=== PATIENT | male | born 1940 | race Caucasian/White ===

== ENCOUNTER 2018-04-19 07:02 | Emergency (ER) | payer OTHER ==
[2018-04-19] MEDS ORDERED: NA CHLORIDE 0.9% 1,000 ML ONE (07:15)
[2018-04-19] MEDS ORDERED: ONDANSETRON 4 MG/2 ML VIAL ONE (07:15)
[2018-04-19 07:27] LABS: Absolute Lymphocytes (CBC) 1.6 K/uL (0.7-4.9); Absolute Monocytes 0.5 K/uL (0.1-1.3); Absolute Neutrophil 3.3 K/uL (1.8-8.0); Basophils % 0.6 % (0-1.3); Eosinophils % 1.8 % (0-4.4); Hematocrit 43.1 % (39.6-49.0); Lymphocytes % 29.8 % (15.3-44.8); MCH 30.9 pg (27.0-35.0); MCV 90.4 fL (80-100); MPV 8.5 fL (7.6-11.3); Monocytes % 8.6 % (3.3-12.3); RBC Red Blood Cell Count 4.77 M/uL (4.33-5.43)
[2018-04-19 07:28] LABS: Protime INR 1.18
[2018-04-19 07:43] LABS: Albumin 3.9 g/dL (3.4-5.0); Bilirubin Direct 0.1 mg/dL (0-0.2); Bilirubin Total 0.6 mg/dL (0.2-1.0); Magnesium 1.9 mg/dL (1.8-2.4); Potassium 3.8 mmol/L (3.5-5.1); Protein, Total 7.9 g/dL (6.4-8.2)
--- NOTE | 2018-04-19 08:11 | ER ---
Nurse's Notes [facility] Name: Bc Carrero Age: 77 yrs Sex: Male : 1940 Arrival Date: 04/19/2018 Time: 07:04 Bed 6 Private MD: Diagnosis: Nausea Presentation: 04/19 07:04 Presenting complaint: Patient states: I woke up this morning feeling very nauseous, la1 threw up a couple times. Pt denies any pain. Transition of care: patient was not received from another setting of care. Onset of symptoms was April 19, 2018. Risk Assessment: Do you want to hurt yourself or someone else? Patient reports no desire to harm self or others. Initial Sepsis Screen: Does the patient meet any 2 criteria? No. Patient's initial sepsis screen is negative. Does the patient have a suspected source of infection? No. Patient's initial sepsis screen is negative. Care prior to arrival: IV initiated. 20 GA, in the left antecubital area. 07:04 Method Of Arrival: EMS: [facility] la1 07:04 Acuity: CLARISSA 3 la1 Triage Assessment: 07:00 General: Appears in no apparent distress. comfortable, Behavior is calm, cooperative, cc3 appropriate for age. Pain: Denies pain. EENT: No signs and/or symptoms were reported regarding the EENT system. Reports feeling nauseated that started at 0500H this morning; denies chest pain.. Neuro: Level of Consciousness is awake, alert, obeys commands, Oriented to person, place, time, situation, Appropriate for age. Cardiovascular: Reports nausea, since 0500H this morning. Cardiovascular: Capillary refill < 3 seconds is brisk. Respiratory: Airway is patent Respiratory effort is even, unlabored, Respiratory pattern is regular, symmetrical. GI: Abdomen is flat, round. : No signs and/or symptoms were reported regarding the genitourinary system. Derm: No signs and/or symptoms reported regarding the dermatologic system. Musculoskeletal: Circulation, motion, and sensation intact. Capillary refill < 3 seconds, is brisk, Range of motion: intact in all extremities. 07:31 GI: Abd is soft and non tender Reports nausea, vomiting, since this morning. la1 Historical: - Allergies: 07:05 No Known Allergies; la1 - Home Meds: 07:05 None [Active]; la1 - PMHx: 07:05 None; la1 - PSHx: 07:05 None; la1 - Immunization history:: Adult Immunizations up to date. - Social history:: Smoking status: Patient/guardian denies using tobacco. - Ebola Screening: : No symptoms or risks identified at this time. Screenin:06 Abuse screen: Denies threats or abuse. Nutritional screening: No deficits noted. la1 Tuberculosis screening: No symptoms or risk factors identified. Fall Risk None identified. Assessment: 07:31 Reassessment: See full triage assessment. GI: Abdomen is round non-distended, Abd is la1 soft and non tender X 4 quads. Reports nausea, vomiting, since this morning. Vital Signs: 07:18 BP 129 / 92; Pulse 70; Resp 17; Temp 97.6(O); Pulse Ox 97% on R/A; Weight 86.18 kg; la1 Height 5 ft. 10 in. (177.80 cm); Pain 0/10; 08:16 BP 128 / 80; Pulse 72; Resp 16; Pulse Ox 98% on R/A; la1 07:18 Body Mass Index 27.26 (86.18 kg, 177.80 cm) la1 ED Course: 07:01 EKG done, by ED staff, reviewed by Roman SONI. eb 07:04 Patient arrived in ED. la1 07:05 Triage completed. la1 07:05 Arm band placed on right wrist. EKG completed in triage. Results shown to MD. la1 07:06 Placed in gown. Bed in low position. Call light in reach. Pulse ox on. NIBP on. la1 07:06 No provider procedures requiring assistance completed. Maintain EMS IV. Dressing la1 intact. Good blood return noted. Site clean \T\ dry. Gauge \T\ site: 22 G LAC. 07:08 Roman Blunt PA is PHCP. jr8 07:08 Wei Caal MD is Attending Physician. jr8 07:17 Ritesh Beard, RN is Primary Nurse. la1 07:21 X-ray completed. Portable x-ray completed in exam room. Patient tolerated procedure jb2 well. 07:22 XRAY Chest (1 view) In Process Unspecified. EDMS 08:10 IV discontinued, intact, bleeding controlled, No redness/swelling at site. Pressure cc3 dressing applied. Administered Medications: 07:17 Drug: NS 0.9% 1000 ml Route: IV; Rate: 1000 ml; Site: left antecubital; la1 07:49 Follow up: IV Status: Completed infusion la1 07:17 Drug: Zofran 4 mg Route: IVP; Site: left antecubital; la1 07:48 Follow up: Response: Nausea is decreased la1 Outcome: 08:10 Discharge ordered by . candace 08:10 Discharged to home ambulatory, with family. cc3 08:10 Condition: stable 08:10 Discharge instructions given to patient, family, Instructed on discharge instructions, follow up and referral plans. medication usage, Demonstrated understanding of instructions, follow-up care, medications, Prescriptions given X 1. 08:18 Patient left the ED. cc3 Signatures: Dispatcher [employer] EDMS Naresh Scott Josh, PA PA jr8 Ritesh Beard RN RN la1 Lubna Montemayor Charlene cc3 Corrections: (The following items were deleted from the chart) 07:19 07:06 Maintain EMS IV. Dressing intact. Good blood return noted. Site clean \T\ dry. la1 Gauge \T\ site: 20 G LAC. la1
--- NOTE | 2018-04-19 08:11 | EDPHYS ---
Physician Documentation [facility] Name: Bc Carrero Age: 77 yrs Sex: Male : 1940 Arrival Date: 04/19/2018 Time: 07:04 Bed 6 Private MD: ED Physician Wei Caal HPI: 04/19 07:47 This 77 yrs old Male presents to ER via EMS with complaints of jr8 Nausea/Vomiting. 07:47 The patient presents to the emergency department with nausea. Onset: The jr8 symptoms/episode began/occurred acutely, today. Possible causes: unknown. The symptoms are aggravated by nothing. The symptoms are alleviated by nothing. Associated signs and symptoms: The patient has no apparent associated signs or symptoms. Severity of symptoms: At their worst the symptoms were moderate in the emergency department the symptoms are unchanged. The patient has not experienced similar symptoms in the past. The patient has not recently seen a physician. stated that he woke up with nausea this morning. Denies vomiting, diarrhea, fevers, or abdominal pain . Historical: - Allergies: 07:05 No Known Allergies; la1 - Home Meds: 07:05 None [Active]; la1 - PMHx: 07:05 None; la1 - PSHx: 07:05 None; la1 - Immunization history:: Adult Immunizations up to date. - Social history:: Smoking status: Patient/guardian denies using tobacco. - Ebola Screening: : No symptoms or risks identified at this time. ROS: 07:47 Eyes: Negative for injury, pain, redness, and discharge, ENT: Negative for injury, jr8 pain, and discharge, Neck: Negative for injury, pain, and swelling, Cardiovascular: Negative for chest pain, palpitations, and edema, Respiratory: Negative for shortness of breath, cough, wheezing, and pleuritic chest pain, Back: Negative for injury and pain, MS/Extremity: Negative for injury and deformity, Skin: Negative for injury, rash, and discoloration, Neuro: Negative for headache, weakness, numbness, tingling, and seizure. 07:47 Abdomen/GI: Positive for nausea, Negative for abdominal pain, vomiting, diarrhea, constipation, abdominal cramps, abdominal distension, anorexia, dysphagia, hematemesis, black/tarry stool, rectal pain, rectal bleeding, bowel incontinence, flatulence. Exam: 07:47 ENT: Nares patent. No nasal discharge, no septal abnormalities noted. Tympanic jr8 membranes are normal and external auditory canals are clear. Oropharynx with no redness, swelling, or masses, exudates, or evidence of obstruction, uvula midline. Mucous membranes moist. Cardiovascular: Regular rate and rhythm with a normal S1 and S2. No gallops, murmurs, or rubs. Normal PMI, no JVD. No pulse deficits. Respiratory: Lungs have equal breath sounds bilaterally, clear to auscultation and percussion. No rales, rhonchi or wheezes noted. No increased work of breathing, no retractions or nasal flaring. Abdomen/GI: Soft, non-tender, with normal bowel sounds. No distension or tympany. No guarding or rebound. No evidence of tenderness throughout. Back: No spinal tenderness. No costovertebral tenderness. Full range of motion. Skin: Warm, dry with normal turgor. Normal color with no rashes, no lesions, and no evidence of cellulitis. MS/ Extremity: Pulses equal, no cyanosis. Neurovascular intact. Full, normal range of motion. Neuro: Awake and alert, GCS 15, oriented to person, place, time, and situation. Cranial nerves II-XII grossly intact. Motor strength 5/5 in all extremities. Sensory grossly intact. Cerebellar exam normal. Normal gait. Vital Signs: 07:18 BP 129 / 92; Pulse 70; Resp 17; Temp 97.6(O); Pulse Ox 97% on R/A; Weight 86.18 kg; la1 Height 5 ft. 10 in. (177.80 cm); Pain 0/10; 08:16 BP 128 / 80; Pulse 72; Resp 16; Pulse Ox 98% on R/A; la1 07:18 Body Mass Index 27.26 (86.18 kg, 177.80 cm) la1 MDM: 07:08 Patient medically screened. 8 07:47 Data reviewed: vital signs, nurses notes, lab test result(s), EKG, radiologic studies, jr8 ultrasound. Data interpreted: Pulse oximetry: on room air is 97 %. Interpretation: normal. Counseling: I had a detailed discussion with the patient and/or guardian regarding: the historical points, exam findings, and any diagnostic results supporting the discharge/admit diagnosis, lab results, radiology results, the need for outpatient follow up, a family practitioner, to return to the emergency department if symptoms worsen or persist or if there are any questions or concerns that arise at home. Response to treatment: the patient's symptoms have resolved after treatment, patient is well hydrated. ED course: Was able to PO challenge without any problem . 08:11 ED course: reevaluated patient. No pain or any other s/s present. Denies nausea now. 04/19 07:09 Order name: Basic Metabolic Panel; Complete Time: 07:46 04/19 07:09 Order name: CBC with Diff; Complete Time: 07:46 04/19 07:09 Order name: CPK; Complete Time: 07:46 04/19 07:09 Order name: LFT's; Complete Time: 07:46 04/19 07:09 Order name: Magnesium; Complete Time: 07:46 04/19 07:09 Order name: PT-INR; Complete Time: 07:46 04/19 07:09 Order name: Troponin (emerg Dept Use Only); Complete Time: 07:46 04/19 07:09 Order name: XRAY Chest (1 view) 04/19 07:09 Order name: EKG; Complete Time: 07:10 04/19 07:09 Order name: Cardiac monitoring; Complete Time: 07:17 04/19 07:09 Order name: EKG - Nurse/Tech; Complete Time: 07:17 04/19 07:09 Order name: Lipase; Complete Time: 07:46 04/19 07:09 Order name: IV Saline Lock; Complete Time: 07:17 04/19 07:09 Order name: Labs collected and sent; Complete Time: 07:18 04/19 07:09 Order name: O2 Per Protocol; Complete Time: 07:18 04/19 07:09 Order name: O2 Sat Monitoring; Complete Time: 07: Administered Medications: 07:17 Drug: NS 0.9% 1000 ml Route: IV; Rate: 1000 ml; Site: left antecubital; la1 07:49 Follow up: IV Status: Completed infusion la1 07:17 Drug: Zofran 4 mg Route: IVP; Site: left antecubital; la1 07:48 Follow up: Response: Nausea is decreased la1 Disposition: 13:30 Co-signature as Attending Physician, Wei Caal MD I agree with the assessment and mary plan of care. Disposition: 04/19/18 08:10 Discharged to Home. Impression: Nausea. - Condition is Stable. - Discharge Instructions: Nausea, Adult. - Prescriptions for Zofran 4 mg Oral Tablet - take 1 tablet by ORAL route every 12 hours As needed; 20 tablet. - Medication Reconciliation Form, Thank You Letter, Antibiotic Education, Prescription Opioid Use form. - Follow up: Private Physician; When: 2 - 3 days; Reason: Recheck today's complaints, Continuance of care, Re-evaluation by your physician. - Problem is new. - Symptoms have improved. Signatures: Dispatcher [employer] EDNE Wei Caal MD MD cha Roszak, Josh, PA PA jr8 Ritesh Beard RN RN la1 Maira Martinez cc3 Corrections: (The following items were deleted from the chart) 08:16 07:09 Urine Dipstick-Ancillary ordered. jr8 la 08:18 08:10 04/19/2018 08:10 Discharged to Home. Impression: Nausea. Condition is Stable. cc3 Forms are Medication Reconciliation Form, Thank You Letter, Antibiotic Education, Prescription Opioid Use. Follow up: Private Physician; When: 2 - 3 days; Reason: Recheck today's complaints, Continuance of care, Re-evaluation by your physician. Problem is new. Symptoms have improved. jr8
--- NOTE | 2018-04-19 08:54 | RAD REPORT ---
EXAM DESCRIPTION: RAD - Chest Single View - 04/19/2018 7:26 am CLINICAL HISTORY: Vomiting, abdominal pain COMPARISON: None. TECHNIQUE: AP portable chest image was obtained 0712 hours . FINDINGS: No peripheral mass, consolidation or acute failure findings. Interstitial markings are pro minent. This is suspected to be baseline; however, mild interstitial edema or infiltrate cannot be ex cluded. Trachea is midline. Heart and vasculature are normal. No measurable pleural effusion and no p neumothorax. No gross bony abnormality seen. No acute aortic findings suspected. IMPRESSION: Baseline examination showing prominent interstitial markings. This could all be chronic lung disease or mild edema/infiltrate.
--- NOTE | 2018-04-19 09:00 | EKG ---
Test Date: 2018-04-19 Test Time: 07:01:47 Train Driver: PORFIRIO MEASUREMENT RESULTS: Intervals: Rate: 65 DC: 162 QRSD: 140 QT: 412 QTc: 428 [place]: P: 35 DC: 162 QRS: 25 T: 4 INTERPRETIVE STATEMENTS: Normal sinus rhythm Right bundle branch block Possible Inferior infarct, age undetermined Abnormal ECG No previous ECG available for comparison Electronically Signed On 04-19-18 08:59:59 CDT by Jarrod Gallego
== END 2018-04-19 08:18 | disposition home or self-care (01) ==
LOC: ER 07:02
DX: R11.0 Nausea (principal)
CPT/HCPCS: 36415; 71045; 80048; 80076; 82550; 83690; 83735; 84484; 85025; 85610; 93005; 96361; 96374; 99284; J2405; J7030

== ENCOUNTER → 2020-07-03 | Day surgery (SDC) | payer OTHER ==
[2020-07-03 11:51] LABS: Absolute Lymphocytes (CBC) 1.6 K/uL (0.7-4.9); Basophils % 0.5 % (0-1.3); Lymphocytes % 16.3 % (15.3-44.8); RBC Red Blood Cell Count 4.28 M/uL (4.33-5.43)
[2020-07-03 12:08] LABS: Protime INR 1.3
[2020-07-03 12:10] LABS: Albumin 3.4 g/dL (3.4-5.0); Bilirubin Total 0.4 mg/dL (0.2-1.0); Potassium 4.1 mmol/L (3.5-5.1); Protein, Total 8.8 g/dL (6.4-8.2)
--- NOTE | 2020-07-03 13:36 | RAD REPORT ---
EXAM DESCRIPTION: US - Percutaneous Biopsy Lung - 07/03/2020 11:58 am CLINICAL HISTORY: C34.91 COMPARISON: Ct Skull/Thigh dated 07/02/2020; Thorax Wo Con dated 06/23/2020 TECHNIQUE: Patient presents for ultrasound-guided tissue sampling of a previously detailed right upp er lung and chest wall mass. The patient's PET-CT and CT chest study reviewed. The ultrasound-guided biopsy procedure, risks and alternatives were discussed with the patient in det ail. After answering all questions, both oral and written consent were obtained. Patient had no contr aindicated allergy or medication history. Preliminary imaging identified the lung mass extending through the chest wall into the axilla. Biopsy of the lateral superior margin was selected after review of the PET imaging. The right axilla was prepped and draped in the usual sterile fashion. Skin and tissues were anestheti zed with 1% lidocaine. Under direct sonographic visualization a 19 gauge introducer needle was advanc ed with the tip placed near the lateral superior margin of the mass. An 18 gauge biopsy needle was ad vanced through the introducer needle. A 2 centimeter core biopsy was obtained using direct sonographi c visualization to guide the biopsy needle. Under direct sonographic visualization 2 additional core biopsies were obtained through the mass. Ultrasound imaging show the mass to be traversing the outer 1-2 cm of the lesion. Core samples appeared to be adequate for tissue diagnosis. The introducer needle was withdrawn and di rect pressure was applied to the puncture site and deeper tissues. Hemostasis was obtained. Follow-up sonography showed no hematoma. A sterile bandage was placed at the puncture site. Postprocedure care and precaution instructions were given to the patient. All obtained material was given to pathology for cytology/ histology assessment. IMPRESSION: Successful ultrasound-guided biopsy of the right lung and chest wall mass. All obtained material was given to pathology for histologic assessment.
== END ==
LOC: FNA 10:39
PROVIDERS: ATTEND Internal Medicine Sleep Medicine
PROC: 0BDK4ZX Extraction of Right Lung, Percutaneous Endoscopic Approach, Diagnostic (ICD-10-PCS; principal; 2020-07-03)
DX: C34.91 Malignant neoplasm of unspecified part of right bronchus or lung (principal)
CPT/HCPCS: 36415; 80053; 85025; 85610; 88305

== ENCOUNTER 2020-10-01 23:03 | Inpatient (IN) | payer OTHER ==
[2020-10-01] MEDS ORDERED: NA CHLORIDE 0.9% 1,000 ML ONE (23:55)
[2020-10-02] MEDS ORDERED: CEFTRIAXONE/SWI 1gm 1 GM/10 ML SYR ONE (00:17)
[2020-10-02 00:19] LABS: Protime INR 2.31
[2020-10-02 00:28] LABS: Absolute Lymphocytes (CBC) 0.4 K/uL (0.7-4.9); Basophils % 0.7 % (0-1.3); Hematocrit 35.1 % (39.6-49.0); Lymphocytes % 12.9 % (15.3-44.8); MPV 8.3 fL (7.6-11.3); RBC Red Blood Cell Count 3.88 M/uL (4.33-5.43)
[2020-10-02 00:36] LABS: ALT/SGPT 48 U/L (12-78); AST/SGOT 58 U/L (15-37); Albumin 2.9 g/dL (3.4-5.0); Alkaline Phosphatase 71 U/L (45-117); Amylase 65 U/L (25-115); BUN Blood Urea Nitrogen 20 mg/dL (7-18); Bicarbonate 24 mmol/L (21-32); Bilirubin Direct 0.2 mg/dL (0-0.2); Bilirubin Total 0.5 mg/dL (0.2-1.0); CKMB Creatine Kinase MB < 1.0 ng/mL (0.3-3.6); Creatine Phosphokinase 89 U/L (39-308); Glucose Level 141 mg/dL (74-106); Lipase 331 U/L (73-393); Potassium 4.1 mmol/L (3.5-5.1); Protein, Total 7.3 g/dL (6.4-8.2); Sodium Level 135 mmol/L (136-145); Troponin (Emerg Dept Use Only) < 0.02 ng/mL (0.0-0.045)
[2020-10-02] MEDS ORDERED: NA CHLORIDE 0.9% 1,000 ML ONE ×2 (00:42→03:52)
--- NOTE | 2020-10-02 00:44 | ER ---
Nurse's Notes [facility] Name: Bc Carrero Age: 80 yrs Sex: Male : 1940 Arrival Date: 10/01/2020 Time: 23:04 Bed 8 Private MD: Pako Warner R Diagnosis: Pneumonia, unspecified organism;Sepsis, unspecified organism Presentation: 10/01 23:22 Chief complaint: Patient states: cough and fever x 1 week. Took some medication called dm5 in by MD but unsure what it was. Not getting better and getting dizzy. Fever continues. Coronavirus screen: Client denies travel out of the [place] in the last 14 days. cough unrelated to allergies, difficulty breathing, Client presents with at least one sign or symptom that may indicate coronavirus-19. Standard/surgical mask placed on the client. Ebola Screen: Patient negative for fever greater than or equal to 101.5 degrees Fahrenheit, and additional compatible Ebola Virus Disease symptoms Patient denies exposure to infectious person. Patient denies travel to an Ebola-affected area in the 21 days before illness onset. No symptoms or risks identified at this time. Initial Sepsis Screen: Does the patient meet any 2 criteria? RR > 20 per min. HR > 90 bpm. Yes Does the patient have a suspected source of infection? Yes: Productive cough/pneumonia. Risk Assessment: Do you want to hurt yourself or someone else? Patient reports no desire to harm self or others. Onset of symptoms was September 25, 2020. 23:22 Method Of Arrival: Ambulatory 5 23:22 Acuity: CLARISSA 2 dm5 Triage Assessment: 10/02 00:00 General: Appears in no apparent distress. Behavior is calm, cooperative, appropriate rr5 for age. Respiratory: Onset: The symptoms/episode began/occurred the patient has mild shortness of breath. Respiratory: Airway is patent Respiratory effort is even, unlabored, Respiratory pattern is tachypnea. Historical: - Allergies: 10/01 23:25 No Known Allergies; dm5 - PMHx: 10/02 00:43 lung cancer; rr5 - Immunization history:: Adult Immunizations up to date. - Social history:: Smoking status: unknown Patient/guardian denies using alcohol, street drugs. Screenin:11 Abuse screen: Denies threats or abuse. Denies injuries from another. Nutritional rr5 screening: No deficits noted. Tuberculosis screening: No symptoms or risk factors identified. Fall Risk IV access (20 points). Total Anderson Fall Scale indicates No Risk (0-24 pts). Assessment: 00:00 General: Appears in no apparent distress. comfortable, Behavior is calm, cooperative, rr5 appropriate for age, Reports fever for feeling ill for fatigue for. 00:00 Pain: Denies pain. Neuro: Level of Consciousness is awake, alert, obeys commands, rr5 Oriented to person, place, time, situation, Reports dizziness. Cardiovascular: Reports shortness of breath, Capillary refill < 3 seconds Patient's skin is warm and dry. Rhythm is sinus tachycardia. Respiratory: Reports shortness of breath cough that is air hunger Airway is patent Respiratory effort is even, unlabored, Respiratory pattern is regular, symmetrical, tachypnea GI: Abdomen is round non-distended. : No signs and/or symptoms were reported regarding the genitourinary system. EENT: No signs and/or symptoms were reported regarding the EENT system. Derm: Skin is intact, is healthy with good turgor, Skin temperature is warm. Musculoskeletal: Circulation, motion, and sensation intact. Capillary refill < 3 seconds. 01:00 Reassessment: Patient appears in no apparent distress at this time. Patient is alert, rr5 oriented x 3, equal unlabored respirations, skin warm/dry/pink. 02:00 Reassessment: Patient appears in no apparent distress at this time. Patient is alert, rr5 oriented x 3, equal unlabored respirations, skin warm/dry/pink. admitted as ER hold Patient states symptoms have improved. Vital Signs: 10/01 23:22 BP 101 / 74; Pulse 122; Resp 32; Temp 99.7(TE); Pulse Ox 97% on R/A; Weight 81.19 kg; dm5 Height 5 ft. 10 in. (177.80 cm); Pain 0/10; 10/02 00:42 BP 107 / 73; Pulse 117; Resp 28; Temp 101.7; Pulse Ox 96% ; rr5 01:35 Weight 81.65 kg; Height 5 ft. 10 in. (177.80 cm); rr5 01:40 BP 90 / 61; Pulse 99; Resp 20; Temp 99.7; Pulse Ox 97% ; rr5 01:35 Body Mass Index 25.83 (81.65 kg, 177.80 cm) rr5 ED Course: 10/01 23:04 Patient arrived in ED. am2 23:04 Pako Warner MD is Private Physician. am2 23:25 Triage completed. dm5 23:31 Omkar Owen PA is PHCP. jmm 23:31 Eliseo Bowen MD is Attending Physician. [facility] 23:33 Tarik Santiago RN is Primary Nurse. rr5 10/02 00:00 Patient has correct armband on for positive identification. Placed in gown. Bed in low rr5 position. Call light in reach. Side rails up X2. bus driver/monitor on. Pulse ox on. NIBP on. 00:05 Inserted saline lock: 20 gauge in right forearm, using aseptic technique. Blood ds4 collected. Missed attempt(s): 18 gauge in right wrist. Bleeding controlled, band aid applied, catheter tip intact. 00:16 Chest Single View XRAY In Process Unspecified. EDMS 00:43 Xavier Cruz is Hospitalizing Provider. rn 00:52 No provider procedures requiring assistance completed. Patient admitted, IV remains in ea place. 00:52 Arm band placed on right wrist. Patient placed in an exam room, on a stretcher, on ea pulse oximetry. Administered Medications: 10/01 23:45 Drug: NS 0.9% (30 ml/kg) 30 ml/kg Route: IV; Rate: bolus; Site: right forearm; rr5 10/02 01:28 Follow up: Response: No adverse reaction; IV Status: Completed infusion; IV Intake: rr5 2000ml 00:37 Drug: Rocephin - (cefTRIAXone) 1 grams Route: IVPB; Infused Over: 30 mins; Site: right rr5 forearm; 01:00 Follow up: Response: No adverse reaction; IV Status: Completed infusion; IV Intake: [id number] 00:45 Drug: Tylenol 1000 mg Route: PO; rr5 01:30 Follow up: Response: No adverse reaction; Temperature is decreased rr5 00:46 Drug: Zofran (Ondansetron) 4 mg Route: IVP; Site: right forearm; rr5 01:45 Follow up: Response: No adverse reaction rr5 01:00 Dru.375 grams of (Zosyn 3.375 grams, NS 0.9% 100 ml) Route: IVPB; Infused Over: 60 rr5 mins; Site: right forearm; 02:00 Follow up: Response: No adverse reaction; IV Status: Completed infusion; IV Intake: rr5 100ml Intake: 01:00 IV: 50ml; Total: 50ml. rr5 01:28 IV: 2000ml; Total: 2050ml. rr5 02:00 IV: 100ml; Total: 2150ml. rr5 Outcome: 00:44 Decision to Hospitalize by Provider. rn 02:00 Admitted to ER Hold. Please see [facility] for further documentation. rr5 02:00 Condition: stable 02:00 Instructed on the need for admit. 08:41 Patient left the ED. [email or web address] Signatures: Dispatcher [employer] Kady Zarate, RN RN dm5 Omkar Owen PA PA jmm Nieto, Roman, MD MD rn Swanson, Donovan ds4 Nelson Green RN RN jl7 Stephanie Gillette Elena RN Tarik Hung ea, RN RN rr5
--- NOTE | 2020-10-02 00:45 | EDPHYS ---
Physician Documentation [facility] Name: Bc Carrero Age: 80 yrs Sex: Male : 1940 Arrival Date: 10/01/2020 Time: 23:04 Bed 8 Private MD: Pako Warner R ED Physician Eliseo Bowen HPI: 10/01 23:43 This 80 yrs old Male presents to ER via Ambulatory with complaints of Fever, jmm Cough, Shortness Of Breath. 23:43 Onset: The symptoms/episode began/occurred gradually, 2 week(s) ago. Modifying factors: jmm there are no obvious modifying factors. Associated signs and symptoms: Pertinent positives: cough, shortness of breath. This is an 80 year old male with a history of Lung Ca that presents to the ED with complaints of fever, cough, shortness of breath ongoing for the past 2 weeks. Patient states he finished chemotherapy approx 1 month ago. Historical: - Allergies: 23:25 No Known Allergies; dm5 - PMHx: 10/02 00:43 lung cancer; rr5 - Immunization history:: Adult Immunizations up to date. - Social history:: Smoking status: unknown Patient/guardian denies using alcohol, street drugs. ROS: 10/01 23:43 Constitutional: Positive for body aches, fever. jmm Respiratory: Positive for cough, shortness of breath. All other systems are negative. Exam: 23:43 Constitutional: This is a well developed, well nourished patient who is awake, alert, jmm and in no acute distress. Head/Face: atraumatic. Eyes: EOMI, no conjunctival erythema appreciated ENT: Moist Mucus Membranes Neck: Trachea midline, Supple Chest/axilla: Normal chest wall appearance and motion. Cardiovascular: Regular rate and rhythm. No edema appreciated Respiratory: Normal respirations, no respiratory distress appreciated Abdomen/GI: Non distended, soft Back: Normal ROM Skin: General appearance color normal MS/ Extremity: Moves all extremities, no obvious deformities appreciated, no edema noted to the lower extremities Neuro: Awake and alert, normal gait Psych: Behavior is normal, Mood is normal, Patient is cooperative and pleasant Vital Signs: 23:22 BP 101 / 74; Pulse 122; Resp 32; Temp 99.7(TE); Pulse Ox 97% on R/A; Weight 81.19 kg; dm5 Height 5 ft. 10 in. (177.80 cm); Pain 0/10; 10/02 00:42 BP 107 / 73; Pulse 117; Resp 28; Temp 101.7; Pulse Ox 96% ; rr5 01:35 Weight 81.65 kg; Height 5 ft. 10 in. (177.80 cm); rr5 01:40 BP 90 / 61; Pulse 99; Resp 20; Temp 99.7; Pulse Ox 97% ; rr5 01:35 Body Mass Index 25.83 (81.65 kg, 177.80 cm) rr5 MDM: 10/01 23:42 Patient medically screened. [facility] 10/02 00:35 Transition of care: After a detail discussion of the patient's case, care is [facility] transferred to Eliseo Bowen MD. 00:40 Differential diagnosis: bacterial infection, pneumonia. Data reviewed: vital signs, rn nurses notes, lab test result(s), EKG, radiologic studies, plain films, and as a result, I will admit patient. Counseling: I had a detailed discussion with the patient and/or guardian regarding: the historical points, exam findings, and any diagnostic results supporting the discharge/admit diagnosis, lab results, radiology results, the need for further work-up and treatment in the hospital. Response to treatment: the patient's symptoms have mildly improved after treatment, and as a result, I will admit patient. Admission orders: after a detailed discussion of the patient's condition and case, the admit orders are written by me. ED course: Pt with right middle lobe infiltrate, sepsis without hypotension, improved HR with fluids, will admit to hospitalist service for pneumonia and sepsis. . 10/01 23:34 Order name: Amylase, Serum 10/01 23:34 Order name: Basic Metabolic Panel 10/01 23:34 Order name: Blood Culture Adult (2) 10/01 23:34 Order name: CBC with Diff 10/01 23:34 Order name: Ckmb 10/01 23:34 Order name: CPK 10/01 23:34 Order name: Lactate 10/01 23:34 Order name: LFT's 10/01 23:34 Order name: Lipase; Complete Time: 00:37 10/01 23:34 Order name: Procalcitonin 5 10/01 23:34 Order name: Protime (+inr); Complete Time: 00:37 rr5 10/01 23:34 Order name: Ptt, Activated; Complete Time: 00:37 5 10/01 23:34 Order name: Troponin (emerg Dept Use Only); Complete Time: 00:37 rr5 10/01 23:34 Order name: Urine Microscopic Only 5 10/01 23:35 Order name: Amylase; Complete Time: 00:37 EDMS 10/01 23:35 Order name: Basic Metabolic Panel; Complete Time: 00:37 EDMS 10/01 23:35 Order name: Blood Culture EDTX 10/01 23:35 Order name: CBC with Automated Diff EDMS 10/01 23:35 Order name: CKMB Creatine Kinase MB; Complete Time: 00:37 EDMS 10/01 23:35 Order name: Creatine Phosphokinase; Complete Time: 00:37 EDMS 10/01 23:35 Order name: Lactate; Complete Time: 00:37 EDMS 10/01 23:35 Order name: Liver (Hepatic) Function; Complete Time: 00:37 EDMS 10/02 00:05 Order name: Glucose, Ancillary Testing EDTX 10/02 00:34 Order name: Manual Differential EDTX 10/02 02:49 Order name: SARS-COV-2 RT PCR EDTX 10/02 05:45 Order name: Hemoglobin A1c EDTX 10/02 05:50 Order name: Urine Dipstick--Ancillary (enter results) 4 10/02 06:15 Order name: Urine Dipstick-Ancillary EDTX 10/02 07:58 Order name: Glucose, Ancillary Testing EDTX 10/01 23:34 Order name: Chest Single View XRAY [facility] 10/01 23:34 Order name: Accucheck; Complete Time: 23:55 5 10/01 23:34 Order name: Cardiac monitoring; Complete Time: 23:55 5 10/01 23:34 Order name: EKG - Nurse/Tech; Complete Time: 23:56 5 10/01 23:34 Order name: IV Saline Lock - Large Bore; Complete Time: 23:56 5 10/01 23:34 Order name: Labs collected and sent; Complete Time: 23:56 5 10/01 23:34 Order name: O2 Per Protocol; Complete Time: 23:56 rr5 10/01 23:34 Order name: O2 Sat Monitoring; Complete Time: 23:56 rr5 10/01 23:34 Order name: Urine Dipstick-Ancillary (obtain specimen); Complete Time: 05:50 rr5 Administered Medications: 10/01 23:45 Drug: NS 0.9% (30 ml/kg) 30 ml/kg Route: IV; Rate: bolus; Site: right forearm; rr5 10/02 01:28 Follow up: Response: No adverse reaction; IV Status: Completed infusion; IV Intake: rr5 2000ml 00:37 Drug: Rocephin - (cefTRIAXone) 1 grams Route: IVPB; Infused Over: 30 mins; Site: right rr5 forearm; 01:00 Follow up: Response: No adverse reaction; IV Status: Completed infusion; IV Intake: [id number] 00:45 Drug: Tylenol 1000 mg Route: PO; rr5 01:30 Follow up: Response: No adverse reaction; Temperature is decreased rr5 00:46 Drug: Zofran (Ondansetron) 4 mg Route: IVP; Site: right forearm; rr5 01:45 Follow up: Response: No adverse reaction rr5 01:00 Dru.375 grams of (Zosyn 3.375 grams, NS 0.9% 100 ml) Route: IVPB; Infused Over: 60 rr5 mins; Site: right forearm; 02:00 Follow up: Response: No adverse reaction; IV Status: Completed infusion; IV Intake: rr5 100ml Disposition: 10/02/20 00:44 Hospitalization ordered by Xavier Cruz for Inpatient Admission. Preliminary diagnosis are Pneumonia, unspecified organism, Sepsis, unspecified organism. - Bed requested for Telemetry/MedSurg (Inpatient). - Status is Inpatient Admission. jl7 - Condition is Stable. - Problem is new. - Symptoms have improved. Addendum: 10/06/2020 01:29 Co-signature as Attending Physician, Eliseo Bowen MD. r n Signatures: Dispatcher [employer] Kady Zarate RN RN dm5 Nae Wilder RN ALAYNA Omkar Owen PA PA jmm Nieto, Roman, MD MD rn Leal, Jahala, RN RN jl7 Tarik Santiago RN RN rr5 Corrections: (The following items were deleted from the chart) 10/02 00:49 00:44 Hospitalization Ordered by Xavier Cruz for Inpatient Admission. Preliminary mw diagnosis is Pneumonia, unspecified organism; Sepsis, unspecified organism. Bed requested for Telemetry/MedSurg (Inpatient). Status is Inpatient Admission. Condition is Stable. Problem is new. Symptoms have improved. rn 06:23 00:49 10/02/2020 00:44 Hospitalization Ordered by Xavier Cruz for Inpatient mw Admission. Preliminary diagnosis is Pneumonia, unspecified organism; Sepsis, unspecified organism. Bed requested for [facility] ER HOLD. Status is Inpatient Admission. Condition is Stable. Problem is new. Symptoms have improved. mw 08:41 06:23 10/02/2020 00:44 Hospitalization Ordered by Xavier Cruz for Inpatient jl7 Admission. Preliminary diagnosis is Pneumonia, unspecified organism; Sepsis, unspecified organism. Bed requested for Telemetry/MedSurg (Inpatient). Status is Inpatient Admission. Condition is Stable. Problem is new. Symptoms have improved. mw
[2020-10-02] MEDS ORDERED: ONDANSETRON 4 MG/2 ML VIAL ONE (00:47)
[2020-10-02] MEDS ORDERED: ACETAMINOPHEN 500 MG TAB ONE (00:47)
[2020-10-02 01:07] LABS: Anisocytosis 2+; Blood Morphology Comment NOTED (NOT SEEN); Platelet Estimate ADEQ
[2020-10-02] MEDS ORDERED: PIPER/TAZO/NS 3.375gm 3.375 GM/100 ML BAG ONE ×2 (01:17→01:21)
--- NOTE | 2020-10-02 01:22 | P.HP ---
Certification for Inpatient Patient admitted to: Inpatient With expected LOS: >2 Midnights Patient will require the following post-hospital care: None Practitioner: I am a practitioner with admitting privileges, knowledge of patient current condition, hospital course, and medical plan of care. Services: Services provided to patient in accordance with Admission requirements found in Title 42 Section 412.3 of the Code of Federal Regulations <Henrik Blunt - Last Filed: 10/02/20 01:16> Patient History Date of Service: 10/02/20 Primary Care Provider: Dr. Warner Reason for admission: bacterial pneumonia, severe sepsis History of Present Illness: Mr. Carrero is an 80 yo male with lung cancer (diagnosed 05/2020) and multiple DVTs (diagnosed 3 weeks ago, on Eliquis) here today for 2 weeks of fever, dry cough, dyspnea on exertion, and wheezing. He tested negative for COVID 3 days ago and was given Zithromax, but symptoms continued to worsen. He denies hemoptysis, nausea, vomiting, and diarrhea. He finished chemotherapy approximately 1 month ago and had a follow up CT scan on Monday for which is he is awaiting results. CXR today showed presence of previous right upper lobe mass and right middle lobe mass now with findings consistent with obstructive pneumonia. Na 135, K 4.1, Cl 103, HCO3 24, BUN 20, Cr 1.00, Glu 141. Hgb/Hct 11.6/35.1, WBC 3.2, Plt 201. Home medications list reviewed: Yes - Past Medical/Surgical History Diabetic: No -: lung cancer -: DVT Past Surgical History: Patient denies surgical history - Family History mother -: Heart disease father -: Heart disease - Social History Smoking Status: Former smoker Counseled patient to stop smoking for: less than 10 minutes Smoking therapy provided: No Alcohol use: No CD- Drugs: No Caffeine use: Yes Place of Residence: Home <Henrik Blunt - Last Filed: 10/02/20 01:16> Date of Service: 10/02/20 <Rosy Marrufo - Last Filed: 10/04/20 14:36> Allergies No Known Allergies Allergy (Unverified 04/19/18 17:36) Home Medications: Apixaban [Eliquis] 5 mg PO BID 10/02/20 Azithromycin [Zithromax] 250 mg PO SEECOM 10/02/20 Benzonatate 200 mg PO TID PRN 10/02/20 Review of Systems General: Fever, As per HPI Eyes: Unremarkable ENT: Unremarkable Respiratory: Cough, Shortness of Breath, SOB with Excertion, Wheezing, As per HPI Cardiovascular: Unremarkable Gastrointestinal: Unremarkable Genitourinary: Unremarkable Musculoskeletal: Unremarkable Integumentary: Unremarkable Neurological: Unremarkable Lymphatics: Unremarkable <Henrik Blunt - Last Filed: 10/02/20 01:16> Physical Examination - Vital Signs Temperature: 99.7 F Blood Pressure: 101/74 Pulse: 122 Respirations: 32 Pulse Ox (%): 97 - Physical Exam General: Alert, In no apparent distress, Oriented x3, Cooperative HEENT: Atraumatic, Normocephalic, PERRLA, Mucous membr. moist/pink, EOMI Neck: Supple, JVD not distended, No Thyromegaly, No LAD Respiratory: Diminished Cardiovascular: No edema, Normal pulses, Regular rate/rhythm, Normal S1 S2, No gallops, No rubs, No murmurs, Irregular heart rate/rhythm Capillary refill: <2 Seconds Gastrointestinal: Normal bowel sounds, No ascites, No tenderness, No masses, No rebound, No guarding Musculoskeletal: No clubbing, No swelling, No contractures, No erythema, No tenderness, No warmth Integumentary: No rashes, No breakdown, No significant lesion, No tenderness/swelling, No erythema, No warmth, No cyanosis Neurological: Normal gait, Normal speech, Normal strength at 5/5 x4 extr, Sensation intact, Cranial nerves 3-12 intact, Normal affect Lymphatics: No axilla or inguinal lymphadenopathy - Studies Laboratory Data (last 24 hrs) 10/01/20 23:59: PT 27.5 H, INR 2.31, APTT 42.8 H 10/01/20 23:59: WBC 3.20 L, Hgb 11.6 L, Hct 35.1 L, Plt Count 201 10/01/20 23:59: Sodium 135 L, Potassium 4.1, BUN 20 H, Creatinine 1.00, Glucose 141 H, Total Bilirubin 0.5, AST 58 H, ALT 48, Alkaline Phosphatase 71, Amylase 65, Lipase 331 <Henrik Blunt - Last Filed: 10/02/20 01:16> Assessment and Plan - Problems (Diagnosis) (1) Bacterial pneumonia Onset Date: ~10/02/20 Current Visit: Yes Status: Acute Plan: - Zosyn 3.375 q8hrs - 1 g ceftriaxone given in the ER - patient completed 3 days of Zithromax outpatient - saturating 96% on room air - blood cultures drawn - COVID negative (2) Lung cancer Onset Date: ~05/05/20 Current Visit: Yes Status: Chronic Plan: - patient finished chemotherapy approximately 1 mo ago - had a CT scan done Monday, awaiting results from oncologist Qualifiers: Laterality: unspecified laterality Lung location: overlapping sites Qualified Code(s): C34.80 - Malignant neoplasm of overlapping sites of unspecified bronchus and lung (3) DVT (deep venous thrombosis) Current Visit: Yes Status: Chronic Plan: - diagnosed with a DVT on ultrasound 3 weeks ago and started on eliquis 5mg - will continue Eliquis and continue to monitor Qualifiers: DVT location: lower extremity Affected thrombotic vein of extremity: unspecified vein of extremity Chronicity: chronic Laterality: unspecified laterality Qualified Code(s): I82.509 - Chronic embolism and thrombosis of unspecified deep veins of unspecified lower extremity (4) Severe sepsis Onset Date: ~10/02/20 Current Visit: Yes Status: Acute Plan: -obtained blood cultures - ordered procal and lactate - admitted for IV abx, see plan under bacterial pneumonia Discharge Plan: Home Plan to discharge in: Greater than 2 days - Advance Directives Does patient have a Living Will: No Does patient have a Durable POA for Healthcare: No - Code Status/Comfort Care Code Status Assessed: Yes (full code) Code Status: Full Code Critical Care: No Time Spent Managing Pts Care (In Minutes): 70 <Henrik Blunt - Last Filed: 10/02/20 01:16> Date of Service: 10/02/20 Agree with plan of care as mentioned above. Patient [facility]. Continue with broad-spectrum antibiotics. Await culture results. Repeat chest x-ray. <Rosy Marrufo - Last Filed: 10/04/20 14:36>
--- NOTE | 2020-10-02 01:43 | P.INFCA ---
Sepsis Focused Assessment - Focused Assessment Complete? Sepsis Focused Assessment Completed?: Yes - Sepsis Screen Result Severe Sepsis: Positive Septic Shock: Negative - Evaluation Current stage of sepsis: Severe sepsis - Vital Signs Reviewed: Yes Temperature: 99.7 F Heart rate: 122 Blood Pressure: 101/74 Respiratory Rate: 32 O2 Sat by Pulse Oximetry: 97 - Examination Date exam was performed: 10/02/20 Time exam was performed: 01:42 Heart: Regular rate/rhythm, S1, S2, Tachycardia Lungs: Diminished air movement, Decreased breath sounds Peripheral pulses: 3+ Normal Peripheral pulse location: Radial Capillary refill: <2 Seconds Skin examination: Normal turgor, Unremarkable
[2020-10-02 03:19] VITALS: BMI 25.7
[2020-10-02] MEDS: NA CHLORIDE 0.9% 1,000 ML IV SCH ×2 (03:27→16:22)
[2020-10-02] MEDS ORDERED: ALBUTEROL 2.5 MG/3 ML NEB SOL NEB PRN (03:27)
[2020-10-02] MEDS ORDERED: NA CHLORIDE 0.9% 500 ML IV ONE (03:27)
[2020-10-02] MEDS ORDERED: ONDANSETRON 4 MG/2 ML VIAL IV PRN (03:27)
[2020-10-02] MEDS ORDERED: IPRATROPIUM BROM 0.5MG/2.5ML NEB PRN (03:27)
[2020-10-02 06:15] LABS: Urine Blood NEGATIVE (NEG); Urine Glucose NEGATIVE (NEG); Urine Protein NEGATIVE (NEG)
[2020-10-02 06:57] LABS: Urine Bacteria <20 /HPF (NONE SEEN); Urine RBC NONE SEEN /HPF (NONE SEEN)
--- NOTE | 2020-10-02 07:17 | RAD REPORT ---
EXAM DESCRIPTION: Joe Single View10/02/2020 12:16 am CLINICAL HISTORY: Cough COMPARISON: September 28 FINDINGS: No change in the large right upper lobe mass. Mild worsening in the mid right lung alveolar opacities which may represent pneumonia or pneumonitis. Left lung appears clear of acute infiltrate. Heart is normal size
[2020-10-02] MEDS: PIPER/TAZO/NS 3.375gm 3.375 GM/100 ML BAG IVPB SCH ×2 (09:24→16:22)
[2020-10-02] MEDS: APIXABAN 5 MG TABLET PO SCH ×2 (09:25→22:09)
--- NOTE | 2020-10-02 11:05 | EKG ---
Test Date: 2020-10-01 Test Time: 23:50:30 Flower Buncher Or Picker: RR MEASUREMENT RESULTS: Intervals: Rate: 115 MI: 136 QRSD: 114 QT: 308 QTc: 426 [place]: P: 21 MI: 136 QRS: 74 T: 42 INTERPRETIVE STATEMENTS: Sinus tachycardia Incomplete right bundle branch block Borderline ECG Compared to ECG 10/01/2020 23:45:25 Atrial premature complex(es) no longer present ST (T wave) deviation no longer present Electronically Signed On 10-02-20 11:05:01 HEAD PIECE ASSEMBLER by Weston Reece
--- NOTE | 2020-10-02 11:05 | EKG ---
Test Date: 2020-10-01 Test Time: 23:45:25 Nuclear Powerplant Mechanic: RR MEASUREMENT RESULTS: Intervals: Rate: 117 CO: 142 QRSD: 112 QT: 306 QTc: 426 [place]: P: 24 CO: 142 QRS: 64 T: 40 INTERPRETIVE STATEMENTS: Sinus tachycardia with premature supraventricular complexes Incomplete right bundle branch block ST elevation, consider early repolarization, pericarditis, or injury Abnormal ECG Compared to ECG 04/19/2018 07:01:47 Atrial premature complex(es) now present Incomplete right bundle-branch block now present ST (T wave) deviation now present Sinus rhythm no longer present Right bundle-branch block no longer present Myocardial infarct finding no longer present Electronically Signed On 10-02-20 11:05:02 ELEMENTARY ELL TEACHER by Weston Reece
[2020-10-02] MEDS: ACETAMINOPHEN 500 MG TAB PO PRN (16:22)
[2020-10-03] MEDS: ACETAMINOPHEN 500 MG TAB PO PRN ×2 (01:15→15:24)
[2020-10-03] MEDS: PIPER/TAZO/NS 3.375gm 3.375 GM/100 ML BAG IVPB SCH ×3 (01:17→17:17)
[2020-10-03 05:59] LABS: Absolute Lymphocytes (CBC) 0.4 K/uL (0.7-4.9); Basophils % 0.8 % (0-1.3); Hematocrit 29.3 % (39.6-49.0); Lymphocytes % 13.6 % (15.3-44.8); MPV 8.1 fL (7.6-11.3); RBC Red Blood Cell Count 3.19 M/uL (4.33-5.43)
[2020-10-03] MEDS: NA CHLORIDE 0.9% 1,000 ML IV SCH ×3 (06:07→23:51)
[2020-10-03 06:25] LABS: Phosphorus 2.7 mg/dL (2.5-4.9)
[2020-10-03 06:27] LABS: BUN Blood Urea Nitrogen 11 mg/dL (7-18); Bicarbonate 26 mmol/L (21-32); Glucose Level 92 mg/dL (74-106); NT PRO-BNP 276 pg/mL (<450); Sodium Level 142 mmol/L (136-145)
--- NOTE | 2020-10-03 09:48 | RAD REPORT ---
EXAM DESCRIPTION: RAD - Chest Single View - 10/03/2020 6:56 am CLINICAL HISTORY: pneumonia COMPARISON: Portable October 02, CT chest September 28 TECHNIQUE: AP portable chest image was obtained 10/03/2020 6:56 am . FINDINGS: Known large right chest wall mass has not changed. Bone destructive changes are stable. Worsening pneumonia changes noted in the right upper lobe. Left midlung field infiltrate is not clear ly different. Left lung field remains clear. Heart and vasculature are normal. No measurable pleural effusion and no pneumothorax. No acute bony abnormality seen. No acute aortic findings suspected. IMPRESSION: Worsening right upper lobe pneumonia since October 02. No change to the bone destructive chest wall mass right upper lung field.
[2020-10-03] MEDS: APIXABAN 5 MG TABLET PO SCH ×2 (10:07→21:20)
[2020-10-03] MEDS ORDERED: VANCOMYCIN 2 GM in NA CHLORIDE 0.9% 500 ML IVPB ONE (13:00)
[2020-10-04] MEDS: PIPER/TAZO/NS 3.375gm 3.375 GM/100 ML BAG IVPB SCH ×3 (01:24→16:40)
[2020-10-04] MEDS: VANCOMYCIN 1.5 GM in NA CHLORIDE 0.9% 500 ML IVPB SCH (06:46)
[2020-10-04] MEDS: NA CHLORIDE 0.9% 1,000 ML IV SCH ×3 (08:47→22:07)
[2020-10-04] MEDS: APIXABAN 5 MG TABLET PO SCH ×2 (09:17→20:47)
[2020-10-04 11:47] LABS: Absolute Lymphocytes (CBC) 0.5 K/uL (0.7-4.9); Basophils % 0.5 % (0-1.3); Hematocrit 31.9 % (39.6-49.0); RBC Red Blood Cell Count 3.48 M/uL (4.33-5.43)
[2020-10-04 12:00] LABS: BUN Blood Urea Nitrogen 7 mg/dL (7-18); Bicarbonate 27 mmol/L (21-32); Glucose Level 122 mg/dL (74-106); Potassium 3.7 mmol/L (3.5-5.1); Sodium Level 141 mmol/L (136-145)
[2020-10-04] MEDS ORDERED: HOME MED 1 EA UNK (Benzonatate [Benzonatate] 200 MG Capsule) PO PRN (14:39)
--- NOTE | 2020-10-04 14:41 | P.PN ---
Subjective Date of Service: 10/03/20 Subjective: No new changes, No C/O voiced Patient still with cough on deep inspiration. Patient with some pleuritic chest discomfort. This may be related to pleurisy. Continue with broad-spectrum antibiotic coverage. Review of Systems 10-point ROS is otherwise unremarkable Physical Examination - Vital Signs Temperature: 98.5 F Blood Pressure: 132/76 Pulse: 85 Respirations: 18 Pulse Ox (%): 95 - Physical Exam General: Alert, In no apparent distress, Oriented x3 Respiratory: Diminished, Rhonchi/gurgles Cardiovascular: Regular rate/rhythm, Normal S1 S2, No murmurs Gastrointestinal: Normal bowel sounds, Soft and benign, Non-distended, No tenderness Musculoskeletal: No clubbing, No swelling, No tenderness Integumentary: No rashes Neurological: Sensation intact, Cranial nerves 3-12 intact Lymphatics: No axilla or inguinal lymphadenopathy - Studies Medications List Reviewed: Yes Assessment & Plan - Problems (Diagnosis) (1) Bacterial pneumonia Onset Date: ~10/02/20 Current Visit: Yes Status: Acute (2) Severe sepsis Onset Date: ~10/02/20 Current Visit: Yes Status: Acute (3) DVT (deep venous thrombosis) Current Visit: Yes Status: Chronic Qualifiers: DVT location: lower extremity Affected thrombotic vein of extremity: unspecified vein of extremity Chronicity: chronic Laterality: unspecified laterality Qualified Code(s): I82.509 - Chronic embolism and thrombosis of unspecified deep veins of unspecified lower extremity (4) Lung cancer Onset Date: ~05/05/20 Current Visit: Yes Status: Chronic Qualifiers: Laterality: unspecified laterality Lung location: overlapping sites Qualified Code(s): C34.80 - Malignant neoplasm of overlapping sites of unspecified bronchus and lung - Plan 1. Continue with IV antibiotics 2. Awaiting sputum and blood culture 3. Repeat chest x-ray 4. Monitor white blood cell count 5. Pulmonary consultation and oncology consultation if symptoms worsen 6. Continue with nebs as needed 7. O2 per protocol 8. Continue with gentle hydration 9. Repeat labs including CBC and renal function in a.m. 10. GI and DVT prophylaxis Discharge Plan: Home Plan to discharge in: Greater than 2 days - Advance Directives Does patient have a Living Will: No Does patient have a Durable POA for Healthcare: No - Code Status/Comfort Care Code Status: Full Code Critical Care: No Time Spent Managing PTS Care (In Minutes): 45
--- NOTE | 2020-10-04 14:46 | P.PN ---
Subjective Date of Service: 10/04/20 Patient doing well with no new complaints. Clinical symptoms continue to worsen. Symptoms have improved. Oxygenation is stable. Chest x-ray yesterday showed worsening pneumonia so we will wait for repeat chest x-ray in a.m. and if this is improved then possible discharge home. Patient has Oncology follow-up on Monday. Spoke with daughter and she is aware of clinical symptoms. Review of Systems 10-point ROS is otherwise unremarkable Physical Examination - Vital Signs Temperature: 98.5 F Blood Pressure: 132/76 Pulse: 85 Respirations: 18 Pulse Ox (%): 95 - Physical Exam General: Alert, In no apparent distress, Oriented x3 Respiratory: Clear to auscultation bilaterally, Normal air movement Cardiovascular: Regular rate/rhythm, Normal S1 S2, No murmurs Gastrointestinal: Normal bowel sounds, Soft and benign, Non-distended, No tenderness Musculoskeletal: No clubbing, No swelling, No tenderness Neurological: Sensation intact, Cranial nerves 3-12 intact - Studies Medications List Reviewed: Yes Assessment & Plan - Problems (Diagnosis) (1) Bacterial pneumonia Onset Date: ~10/02/20 Current Visit: Yes Status: Acute (2) Severe sepsis Onset Date: ~10/02/20 Current Visit: Yes Status: Acute (3) DVT (deep venous thrombosis) Current Visit: Yes Status: Chronic Qualifiers: DVT location: lower extremity Affected thrombotic vein of extremity: unspecified vein of extremity Chronicity: chronic Laterality: unspecified laterality Qualified Code(s): I82.509 - Chronic embolism and thrombosis of unspecified deep veins of unspecified lower extremity (4) Lung cancer Onset Date: ~05/05/20 Current Visit: Yes Status: Chronic Qualifiers: Laterality: unspecified laterality Lung location: overlapping sites Q ualified Code(s): C34.80 - Malignant neoplasm of overlapping sites of unspecified bronchus and lung - Plan Continue with plan of care as mentioned below 1. Continue with IV antibiotics; broad-spectrum coverage with Zosyn and vancomycin 2. Awaiting sputum and blood culture 3. Repeat chest x-ray tomorrow morning 4. Monitor white blood cell count; currently stable and no indication of leukopenia 5. Symptoms are improving; 6. Continue with nebs as needed 7. O2 per protocol 8. Hep-Lock IV 9. We will continue to monitor labs closely 10. GI and DVT prophylaxis Discharge Plan: Home Plan to discharge in: [facility] than 2 days - Advance Directives Does patient have a Living Will: No Does patient have a Durable POA for Healthcare: No - Code Status/Comfort Care Code Status: Full Code Critical Care: No Time Spent Managing PTS Care (In Minutes): 35
[2020-10-04] MEDS ORDERED: IPRATROPIUM BROM 0.5MG/2.5ML NEB PRN (15:00)
[2020-10-04] MEDS ORDERED: ALBUTEROL 2.5 MG/3 ML NEB SOL NEB PRN (15:00)
[2020-10-04] MEDS: BENZONATATE 100 MG CAP PO PRN ×2 (16:40→21:50)
[2020-10-04] MEDS ORDERED: APIXABAN 2.5 MG TABLET PO SCH (21:00)
[2020-10-05] MEDS: PIPER/TAZO/NS 3.375gm 3.375 GM/100 ML BAG IVPB SCH ×3 (00:08→17:15)
[2020-10-05] MEDS: VANCOMYCIN 1.5 GM in NA CHLORIDE 0.9% 500 ML IVPB SCH ×2 (01:42→18:25)
[2020-10-05 06:49] LABS: Absolute Lymphocytes (CBC) 0.6 K/uL (0.7-4.9); Basophils % 0.4 % (0-1.3); Hematocrit 28.1 % (39.6-49.0); Lymphocytes % 14.4 % (15.3-44.8); RBC Red Blood Cell Count 3.07 M/uL (4.33-5.43)
[2020-10-05 07:10] LABS: ALT/SGPT 57 U/L (12-78); AST/SGOT 75 U/L (15-37); Albumin 2.4 g/dL (3.4-5.0); Alkaline Phosphatase 60 U/L (45-117); BUN Blood Urea Nitrogen 7 mg/dL (7-18); Bicarbonate 25 mmol/L (21-32); Bilirubin Total 0.4 mg/dL (0.2-1.0); Glucose Level 99 mg/dL (74-106); NT PRO-BNP 505 pg/mL (<450); Potassium 3.6 mmol/L (3.5-5.1); Protein, Total 6.4 g/dL (6.4-8.2); Sodium Level 141 mmol/L (136-145)
--- NOTE | 2020-10-05 08:31 | P.DS ---
Admission Date: 10/02/20 Discharge Date: 10/05/20 Primary Care Provider: Dr. Warner Disposition: ROUTINE DISCHARGE Discharge Condition: GOOD Reason for Admission: cough, SOB Consultations: none Procedures: COVID: Negative CT scan 09/28: COMPARISON: Thorax Wo Con dated 06/23/2020; Ct Skull/Thigh dated 07/02/2020 TECHNIQUE: Dynamically enhanced 5 mm thick images of the chest were obtained during administration of 100 mL non-ionic IV contrast. All CT scans are performed using dose optimization technique as appropriate and may include automated exposure control or mA/KV adjustment according to patient size. FINDINGS: The known chest wall mass superior right slight chest is again noted. On the current examination this measures approximately 8.6 cm AP x 8.5 cm TR. Measurement techniques are slightly different between the studies. Mass may be slightly larger than June. Certainly no reduction in size has occurred. There is heterogeneous enhancement or possibly mineralization within the superior aspect of this chest wall mass. Destructive changes to the lateral right second rib are again noted. No axillary lymphadenopathy or new lung parenchymal process. Small nonspecific mediastinal lymph nodes have not changed. Pretracheal lymph node measures 18 mm on the current study compared to 22 mm. Interstitial thickening noted along the superior margin of the mass is well is the inferior margin in the right middle lobe. This is post therapy change to the lung parenchyma. No pleural thickening or pleural effusion. No pneumothorax. No other chest wall mass and no abnormal axillary lymphadenopathy. Mediastinal findings are stable. IMPRESSION: The large 8 centimeter or more mass in the superior right chest wall again noted. Measurements detailed above are similar or slightly increased from June. Certainly no reduction in size has occurred. Any minimal growth, if true, could below the blooming affect from posttherapy tissue necrosis. Pretracheal mediastinal lymph node measures fractionally smaller and there is no new or progressive mediastinal or hilar finding. CXR: COMPARISON: September 28 FINDINGS: No change in the large right upper lobe mass. Mild worsening in the mid right lung alveolar opacities which may represent pneumonia or pneumonitis. Left lung appears clear of acute infiltrate. 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 Patient had tested negative for COVID 3 days ago and was given Zithromax, but symptoms continued to worsen. He finished chemotherapy approximately 1 month ago and had a follow up CT scan on Monday for which is he is awaiting results. CXR today showed presence of previous right upper lobe mass and right middle lobe mass now with findings consistent with obstructive pneumonia. Patient admitted for further evaluation and treatment. Home medications list reviewed: Yes - Past Medical/Surgical History Diabetic: No -: lung cancer -: DVT Past Surgical History: Patient denies surgical history - Family History mother -: Heart disease father -: Heart disease - Social History Smoking Status: Former smoker Counseled patient to stop smoking for: less than 10 minutes Smoking therapy provided: No Alcohol use: No CD- Drugs: No Caffeine use: Yes Place of Residence: Home <Henrik Blunt - Last Filed: 10/02/20 01:16> Date of Service: 10/02/20 <Rosy Marrufo - Last Filed: 10/04/20 14:36> Allergies No Known Allergies Allergy (Unverified 04/19/18 17:36) Home Medications: Apixaban [Eliquis] 5 mg PO BID 10/02/20 Azithromycin [Zithromax] 250 mg PO SEECOM 10/02/20 Benzonatate 200 mg PO TID PRN 10/02/20 Review of Systems General: Fever, As per HPI Eyes: Unremarkable ENT: Unremarkable Respiratory: Cough, Shortness of Breath, SOB with Excertion, Wheezing, As per HPI Cardiovascular: Unremarkable Gastrointestinal: Unremarkable Genitourinary: Unremarkable Musculoskeletal: Unremarkable Integumentary: Unremarkable Neurological: Unremarkable Lymphatics: Unremarkable <Henrik Blunt - Last Filed: 10/02/20 01:16> Physical Examination - Vital Signs Temperature: 99.7 F Blood Pressure: 101/74 Pulse: 122 Respirations: 32 Pulse Ox (%): 97 - Physical Exam General: Alert, In no apparent distress, Oriented x3, Cooperative HEENT: Atraumatic, Normocephalic, PERRLA, Mucous membr. moist/pink, EOMI Neck: Supple, JVD not distended, No Thyromegaly, No LAD Respiratory: Diminished Cardiovascular: No edema, Normal pulses, Regular rate/rhythm, Normal S1 S2, No gallops, No rubs, No murmurs, Irregular heart rate/rhythm Capillary refill: <2 Seconds Gastrointestinal: Normal bowel sounds, No ascites, No tenderness, No masses, No rebound, No guarding Musculoskeletal: No clubbing, No swelling, No contractures, No erythema, No tenderness, No warmth Integumentary: No rashes, No breakdown, No significant lesion, No tenderness/swelling, No erythema, No warmth, No cyanosis Neurological: Normal gait, Normal speech, Normal strength at 5/5 x4 extr, Sensation intact, Cranial nerves 3-12 intact, Normal affect Lymphatics: No axilla or inguinal lymphadenopathy - Studies Laboratory Data (last 24 hrs) 10/01/20 23:59: PT 27.5 H, INR 2.31, APTT 42.8 H 10/01/20 23:59: WBC 3.20 L, Hgb 11.6 L, Hct 35.1 L, Plt Count 201 10/01/20 23:59: Sodium 135 L, Potassium 4.1, BUN 20 H, Creatinine 1.00, Glucose 141 H, Total Bilirubin 0.5, AST 58 H, ALT 48, Alkaline Phosphatase 71, Amylase 65, Lipase 331 <Henrik Blunt - Last Filed: 10/02/20 01:16> Assessment and Plan - Problems (Diagnosis) (1) Bacterial pneumonia Onset Date: ~10/02/20 Current Visit: Yes Status: Acute Plan: - Zosyn 3.375 q8hrs - 1 g ceftriaxone given in the ER - patient completed 3 days of Zithromax outpatient - saturating 96% on room air - blood cultures drawn - COVID negative (2) Lung cancer Onset Date: ~05/05/20 Current Visit: Yes Status: Chronic Plan: - patient finished chemotherapy approximately 1 mo ago - had a CT scan done Monday, awaiting results from oncologist Qualifiers: Laterality: unspecified laterality Lung location: overlapping sites Qualified Code(s): C34.80 - Malignant neoplasm of overlapping sites of unspecified bronchus and lung (3) DVT (deep venous thrombosis) Current Visit: Yes Status: Chronic Plan: - diagnosed with a DVT on ultrasound 3 weeks ago and started on eliquis 5mg - will continue Eliquis and continue to monitor Qualifiers: DVT location: lower extremity Affected thrombotic vein of extremity: unspecified vein of extremity Chronicity: chronic Laterality: unspecified laterality Qualified Code(s): I82.509 - Chronic embolism and thrombosis of unspecified deep veins of unspecified lower extremity (4) Severe sepsis Onset Date: ~10/02/20 Current Visit: Yes Status: Acute Plan: -obtained blood cultures - ordered procal and lactate - admitted for IV abx, see plan under bacterial pneumonia Discharge Plan: Home Plan to discharge in: Greater than 2 days - Advance Directives Does patient have a Living Will: No Does patient have a Durable POA for Healthcare: No - Code Status/Comfort Care Code Status Assessed: Yes (full code) Code Status: Full Code Critical Care: No Time Spent Managing Pts Care (In Minutes): 70 <Henrik Blunt - Last Filed: 10/02/20 01:16> Hospital Course: Patient presented with increased cough, shortness of breath. Patient found to have severe to right lung pneumonia complicated with a large right chest mass related to right lung cancer with recent chemotherapy/radiation. Patient was admitted and treated. The patient has done well. At discharge patient without significant chest pain, shortness of breath. Patient overall improved. At discharge the patient will continue with Levaquin 500 mg daily for 7 days. Patient will continue with incentive spirometer as directed. At discharge the patient may continue with Tessalon Perles 3 times a day as needed for cough. The patient will also be provided Pro air 2 puffs 3 times a day as needed for shortness of breath. Patient will follow up with PCP in 1 week to follow up this hospitalization. Recommend to recheck chest x-ray in 2-4 weeks to monitor resolution. Patient with underlying right lung cancer with recent chemotherapy and radiation. Patient has follow up with oncology tomorrow. Previous CT scan done September 28 shows no significant change from prior CT scan. Follow up with oncology as directed to further address his treatment. Patient with history of DVT currently on chronic anti coalition therapy. At discharge patient will continue with Eliquis 5 mg 1 pill twice daily. Patient with anemia of chronic disease. Recommend to recheck CBC in 1-2 weeks to follow up this hospitalization. Further workup can be done by oncology. Vital Signs/Physical Exam: Temp Pulse Resp BP Pulse Ox 99.2 F 89 16 129/80 92 10/05/20 08:00 10/05/20 08:00 10/05/20 08:00 10/05/20 08:00 10/05/20 08:00 General: Alert, In no apparent distress, Oriented x3, Cooperative HEENT: Atraumatic Neck: Supple Respiratory: Other (Mild crackles to the right base but improved aeration bilateral) Cardiovascular: Normal pulses, Regular rate/rhythm Gastrointestinal: Normal bowel sounds, Soft and benign, Non-distended, No masses, No rebound, No guarding Neurological: Normal speech, Normal strength at 5/5 x4 extr, Normal tone, Normal affect Laboratory Data at Discharge: WBC 4.00 K/uL (4.3-10.9) L 10/05/20 06:30 Hgb 9.5 g/dL (13.6-17.9) L 10/05/20 06:30 Hct 28.1 % (39.6-49.0) L 10/05/20 06:30 Plt Count 212 K/uL (152-406) 10/05/20 06:30 PT 27.5 SECONDS (9.5-12.5) H 10/01/20 23:59 INR 2.31 10/01/20 23:59 APTT 42.8 SECONDS (24.3-36.9) H 10/01/20 23:59 Sodium 141 mmol/L (136-145) 10/05/20 06:19 Potassium 3.6 mmol/L (3.5-5.1) 10/05/20 06:19 BUN 7 mg/dL (7-18) 10/05/20 06:19 Creatinine 0.68 mg/dL (0.55-1.3) 10/05/20 06:19 Glucose 99 mg/dL (74-106) 10/05/20 06:19 Phosphorus 3.0 mg/dL (2.5-4.9) 10/05/20 06:19 Magnesium 2.0 mg/dL (1.8-2.4) 10/05/20 06:19 Total Bilirubin 0.4 mg/dL (0.2-1.0) 10/05/20 06:19 AST 75 U/L (15-37) H 10/05/20 06:19 ALT 57 U/L (12-78) 10/05/20 06:19 Alkaline Phosphatase 60 U/L (45-117) 10/05/20 06:19 Amylase 65 U/L (25-115) 10/01/20 23:59 Lipase 331 U/L (73-393) 10/01/20 23:59 Home Medications: Apixaban [Eliquis *] 5 mg PO BID 10/02/20 Benzonatate 200 mg PO TID PRN 10/02/20 Albuterol Sulfate [Proair Hfa] 2 puff IH TID PRN #1 hfa.[email or web address] 10/05/20 Levofloxacin [Levaquin] 500 mg PO DAILY #7 tablet 10/05/20 New Medications: Levofloxacin [Levaquin] 500 mg PO DAILY #7 tablet Albuterol Sulfate [Proair Hfa] 2 puff IH TID PRN #1 hfa.aer.ad PRN Reason: Shortness Of Breath Patient Discharge Instructions: Follow up with PCP in 1 week to follow up hospitalization. Patient presented with increased cough, shortness of breath. Patient found to have severe to right lung pneumonia complicated with a large right chest mass related to right lung cancer with recent chemotherapy/radiation. Patient was admitted and treated. The patient has done well. At discharge patient without significant chest pain, shortness of breath. Patient overall improved. At discharge the patient will continue with Levaquin 500 mg daily for 7 days. Patient will continue with incentive spirometer as directed. At discharge the patient may continue with Tessalon Perles 3 times a day as needed for cough. The patient will also be provided Pro air 2 puffs 3 times a day as needed for shortness of breath. Patient will follow up with PCP in 1 week to follow up this hospitalization. Recommend to recheck chest x-ray in 2-4 weeks to monitor resolution. Patient with underlying right lung cancer with recent chemotherapy and radiation. Patient has follow up with oncology tomorrow. Previous CT scan done September 28 shows no significant change from prior CT scan. Follow up with oncology as directed to further address his treatment. Patient with history of DVT currently on chronic anti coalition therapy. At discharge patient will continue with Eliquis 5 mg 1 pill twice daily. Patient with anemia of chronic disease. Recommend to recheck CBC in 1-2 weeks to follow up this hospitalization. Further workup can be done by oncology. Diet: AHA Activity: Ad izzy Followup: Pako Warner MD [Primary Care Provider] - Time spent managing pt's care (in minutes): 55
--- NOTE | 2020-10-05 08:53 | RAD REPORT ---
EXAM DESCRIPTION: Joe Pa And Lat (2 Views)10/05/2020 8:46 am CLINICAL HISTORY: Cough COMPARISON: October 03 FINDINGS: The large right lung mass is unchanged Mild improvement in the right upper lobe opacities consistent with pneumonia No change in a mid right lung opacity Small nodular opacity overlying the left lung base probably a nipple shadow. Mild ground-glass opacit y medial left upper lobe unchanged
[2020-10-05] MEDS: ACETAMINOPHEN 500 MG TAB PO PRN ×2 (09:01→17:21)
[2020-10-05] MEDS: APIXABAN 5 MG TABLET PO SCH ×2 (09:01→21:28)
[2020-10-05] MEDS: BENZONATATE 100 MG CAP PO PRN ×2 (09:01→17:21)
[2020-10-05] MEDS: NA CHLORIDE 0.9% 1,000 ML IV SCH (11:27)
[2020-10-06] MEDS: PIPER/TAZO/NS 3.375gm 3.375 GM/100 ML BAG IVPB SCH ×2 (00:58→08:35)
[2020-10-06 08:19] VITALS: O2SAT 90
[2020-10-06 08:24] VITALS: BP 121/70; TEMP 99.1
[2020-10-06] MEDS: APIXABAN 5 MG TABLET PO SCH (08:35)
== END 2020-10-06 09:30 | disposition home or self-care (01) | DRG 871 ==
LOC: ER 23:03 → ERHOLD 10-02 02:39 → 2ND 10-02 08:06
PROVIDERS: ADMIT Hospitalist; ATTEND Family Medicine
DX: A41.9 Sepsis, unspecified organism (principal); J15.9 Unspecified bacterial pneumonia; I82.509 Chronic embolism and thrombosis of unspecified deep veins of unspecified lower extremity; C34.81 Malignant neoplasm of overlapping sites of right bronchus and lung; D63.8 Anemia in other chronic diseases classified elsewhere; R65.20 Severe sepsis without septic shock; Z85.118 Personal history of other malignant neoplasm of bronchus and lung; Z87.891 Personal history of nicotine dependence; Z79.01 Long term (current) use of anticoagulants; Z79.899 Other long term (current) drug therapy; Z20.822 Contact with and (suspected) exposure to COVID-19
CPT/HCPCS: 36415; 71045; 71046; 80048; 80053; 80076; 81003; 81015; 82150; 82550; 82553; 82947; 83036; 83605; 83690; 83735; 83880; 84100; 84145; 84484; 85025; 85610; 85730; 87040; 93005; 94760; 96365; 96367; 96375; 97161; 99285; J0696; J2405; J2543; J3370; J7030; J7040; U0003

== ENCOUNTER 2022-04-14 08:57 | Day surgery (SDC) | payer OTHER ==
[2022-04-14] MEDS ORDERED: NA CHLORIDE 0.9% 250 ML ONE ×2 (09:49→12:09)
[2022-04-14 10:06] VITALS: BMI 26.5
[2022-04-14 16:31] VITALS: BP 134/72; TEMP 99.2; O2SAT 92
[2022-04-14 17:20] LABS: Hematocrit 27.3 % (39.6-49.0)
== END 2022-04-14 16:32 | disposition home or self-care (01) ==
LOC: DS 08:57
PROVIDERS: ATTEND Internal Medicine Hematology & Oncology
PROC: 30233N1 Transfusion of Nonautologous Red Blood Cells into Peripheral Vein, Percutaneous Approach (ICD-10-PCS; principal; 2022-04-14)
DX: D64.81 Anemia due to antineoplastic chemotherapy (principal); G89.3 Neoplasm related pain (acute) (chronic); C79.51 Secondary malignant neoplasm of bone
CPT/HCPCS: 36415; 36430; 85014; 85018; 86850; 86900; 86901; J7050; P9016

== ENCOUNTER 2022-04-14 19:08 | Inpatient (IN) | payer OTHER ==
--- OUTSIDE RECORDS SUMMARY | 2022-04-14 19:13 | XMS REPORT | Continuity of Care Document ---
:1940 Author Organization [facility] t Address [address] [place] [address] Dr. Ortiz [address] [place] [id number] Care Team Providers Name Role Phone Leny-Rajio_A_AH Attending Clinician Unavailable Leny-Mbayo_A_AH Admitting Clinician Unavailable Payers Payer Name Policy Type Policy Number Effective Date Expiration Date S shant [facility] - [id number] 2019 [employer] 00:00:00 (MEDICARE REPLACEMENT/ADVANT AGE - HMO) Problems This patient has no known problems. Allergies, Adverse Reactions, Alerts This patient has no known allergies or adverse reactions. Medications This patient has no known medications. Procedures This patient has no known procedures. Encounters Start End Encounter Admission Attending Care Care Encounter Source Date/Time Date/Time Type Type Clinicians Facility Department ID 2019-10-23 2019-10-23 Outpatient [facility] [phone] [facility] 07:24:00 07:24:00 _A_AH [id number] [facility] Results This patient has no known results.
--- NOTE | 2022-04-14 19:57 | RAD REPORT ---
EXAM DESCRIPTION: RAD - Chest Single View - 04/14/2022 7:50 pm CLINICAL HISTORY: PRODUCTIVE COUGH Chest pain. COMPARISON: Chest Pa And Lat (2 Views) dated 10/05/2020; Chest Single View dated 10/03/2020; Chest Sing le View dated 10/02/2020; Chest Pa And Lat (2 Views) dated 06/03/2020; Chest Abdomen Pelvis W Cont date d 02/03/2022 FINDINGS: Portable technique limits examination quality. Large chest wall mass is again a is identified in the right upper lung. Underlying destructive change s to the rete are present. There moderately severe bilateral pulmonary opacities, greatest in the lef t upper lobe. The left upper lobe findings are suspicious for pneumonia. The heart is mildly enlarged in size. IMPRESSION: Findings suspicious for left upper lobe pneumonia.
[2022-04-14 20:11] LABS: Urine Blood Negative (Negative); Urine Glucose Negative (Negative); Urine Protein 1+ (Negative); Urine Specific Gravity 1.025 (1.005-1.030)
[2022-04-14] MEDS ORDERED: ACETAMINOPHEN 500 MG TAB ONE (20:15)
[2022-04-14] MEDS ORDERED: CEFEPIME 2 GM VIAL ONE (20:15)
[2022-04-14] MEDS ORDERED: NA CHLORIDE 0.9% 250 ML ONE (20:15)
[2022-04-14] MEDS ORDERED: VANCOMYCIN 1 GM/VIAL ONE (20:15)
[2022-04-14] MEDS ORDERED: NA CHLORIDE 0.9% 100 ML ONE (20:16)
[2022-04-14] MEDS ORDERED: NA CHLORIDE 0.9% 1,000 ML ONE ×2 (20:16→23:20)
[2022-04-14 20:20] LABS: Arterial Blood Carboxyhemoglob 1.8 % (0-1.5); Blood Gas Oxyhemoglobin 90.4 % (94-97)
[2022-04-14 20:29] LABS: Absolute Lymphocytes (CBC) 0.2 K/uL (0.7-4.9); Hematocrit 25.8 % (39.6-49.0); Lymphocytes % 4.1 % (15.3-44.8); MCV 89.7 fL (80-100); MPV 7.5 fL (7.6-11.3); RBC Red Blood Cell Count 2.88 M/uL (4.33-5.43)
[2022-04-14 20:39] LABS: Urine Bacteria <20 /HPF (<20); Urine RBC <5 /HPF (None Seen)
[2022-04-14 20:43] LABS: Protime INR 1.69
[2022-04-14 20:47] LABS: Albumin 2.6 g/dL (3.4-5.0); Bilirubin Total 0.6 mg/dL (0.2-1.0); Potassium 4.2 mmol/L (3.5-5.1); Protein, Total 7.3 g/dL (6.4-8.2)
--- NOTE | 2022-04-14 21:24 | EDPHYS ---
Physician Documentation [facility] Name: Bc Carrero Age: 81 yrs Sex: Male : 1940 Arrival Date: 04/14/2022 Time: 19:11 Bed 28 Private MD: ED Physician Aisha Riley HPI: 04/14 19:28 This 81 yrs old Male presents to ER via EMS with complaints of fever, abdominal pain. 3 19:28 81-year-old male with a history of lung cancer stage IV with metastases presents to the 3 ED with chief complaint fever and lower abdominal pain. Patient received an unknown quantity of packed red blood cells earlier today and was not premedicated with any medications. She also complains of abdominal pain and shortness of breath along with fever. No other pain reported including headache, chest pain, back pain, lower extremity pain. No rash. Patient does state that he looks more jaundiced than normal. Patient is currently receiving chemotherapy but denies radiation. Unknown if immunotherapy is part of his regimen.. Historical: - Allergies: 19:25 No Known Allergies; vc1 - Home Meds: 19:25 Chemotherapy [Active]; vc1 - PMHx: 19:25 Lung Cancer; vc1 - Immunization history:: Adult Immunizations up to date, Client reports receiving the 2nd dose of the Covid vaccine, Plus Booster; Moderna. - Social history:: Smoking status: Patient/guardian denies using tobacco, but has a distant history of tobacco abuse. ROS: 19:29 Eyes: Negative for injury, pain, redness, and discharge, ENT: Negative for injury, sp3 pain, and discharge, Neck: Negative for injury, pain, and swelling, Cardiovascular: Negative for chest pain, palpitations, and edema, MS/Extremity: Negative for injury and deformity, Skin: Negative for injury, rash, and discoloration, Neuro: Negative for headache, weakness, numbness, tingling, and seizure, Psych: Negative for depression, anxiety, suicide ideation, homicidal ideation, and hallucinations, Allergy/Immunology: Negative for hives, rash, and allergies, Endocrine: Negative for neck swelling, polydipsia, polyuria, polyphagia, and marked weight changes, Hematologic/Lymphatic: Negative for swollen nodes, abnormal bleeding, and unusual bruising. 19:29 All other systems are negative. Exam: 19:30 Constitutional: This is a well developed, well nourished patient who is awake, alert, sp3 and in no acute distress. Head/Face: Normocephalic, atraumatic. Eyes: Pupils equal round and reactive to light, extra-ocular motions intact. Lids and lashes normal. Conjunctiva and sclera are non-icteric and not injected. Cornea within normal limits. Periorbital areas with no swelling, redness, or edema. ENT: Nares patent. No nasal discharge, no septal abnormalities noted. External auditory canals are clear. Oropharynx with no redness, swelling, or masses, exudates, or evidence of obstruction, uvula midline. Mucous membranes moist. Neck: Trachea midline, no thyromegaly or masses palpated, and no cervical lymphadenopathy. Supple, full range of motion without nuchal rigidity, or vertebral point tenderness. No Meningismus. Chest/axilla: Normal chest wall appearance and motion. Nontender with no deformity. No lesions are appreciated. MS/ Extremity: Pulses equal, no cyanosis. Neurovascular intact. Full, normal range of motion. Neuro: Awake and alert, GCS 15, oriented to person, place, time, and situation. Cranial nerves II-XII grossly intact. Motor strength 5/5 in all extremities. Sensory grossly intact. Cerebellar exam normal. Normal gait. Psych: Awake, alert, with orientation to person, place and time. Behavior, mood, and affect are within normal limits. 19:30 Cardiovascular: She is tachycardic but with a normal rhythm.. 19:30 Respiratory: Scattered rhonchorous breath sounds diffuse.. 19:30 Abdomen/GI: Lower abdominal pain to palpation without evidence of rebound or guarding.. 19:30 Skin: Patient has 1+ jaundice diffusely. Mild scleral icterus.. Vital Signs: 19:12 BP 129 / 94; Pulse 116; Resp 19; Temp 102.7; Pulse Ox 93% on R/A; vc1 19:26 Weight 83.91 kg; Height 5 ft. 10 in. (177.80 cm); Pain 8/10; vc1 21:38 Temp 99.6; vc1 21:52 BP 110 / 67; Pulse 86; Pulse Ox 93% on R/A; vc1 19:26 Body Mass Index 26.54 (83.91 kg, 177.80 cm) vc1 MDM: 19:16 Patient medically screened. sp3 19:31 Data reviewed: vital signs, nurses notes. ED course: Patient with stage IV cancer with sp3 fever. Will obtain sepsis work-up as fever could be indicative of infection versus transfusion reaction. Patient is also hypoxic at 90 to 92% on 4 L. Obtain PE as well with abdomen pelvis runoffs. Antibiotics will include cefepime and vancomycin prophylactically while on the labs and cultures are pending. She will be admitted to hospitalist service with appropriate consultations as needed. Normal saline for fluid support. 21:21 ED course: Sided pneumonia found on chest x-ray. Patient is also on a 4 L O2 sp3 requirement. Will admit patient to the hospitalist service at this time with CT pending. This has been communicated to the night midlevel provider who will assume care on behalf of Dr. Cruz.. 04/14 19:25 Order name: Blood Culture Adult (2) sp3 04/14 19:25 Order name: CBC with Diff; Complete Time: 21:36 sp3 04/14 19:25 Order name: CMP; Complete Time: 21:19 sp3 04/14 19:25 Order name: Lactate; Complete Time: 21:19 sp3 04/14 19:25 Order name: Protime (+inr); Complete Time: 20:47 sp3 04/14 19:25 Order name: Ptt, Activated; Complete Time: 20:47 sp3 04/14 19:25 Order name: Urine Culture 3 04/14 19:25 Order name: Urine Microscopic Only; Complete Time: 20:47 sp3 04/14 19:25 Order name: ABG: VENOUS; Complete Time: 20:47 sp3 04/14 19:33 Order name: Troponin High Sensitivity; Complete Time: 21:19 sp3 04/14 20:11 Order name: Urine Dipstick-Ancillary; Complete Time: 20:47 EDMS 04/14 20:31 Order name: SARS RAPID; Complete Time: 22:18 vc1 04/14 20:42 Order name: Glucose, Ancillary Testing; Complete Time: 20:47 EDMS 04/14 21:32 Order name: CBC Smear Scan; Complete Time: 21:36 EDMS 04/14 19:25 Order name: Chest Single View XRAY; Complete Time: 20:47 sp3 04/14 19:34 Order name: CT Chest For PE Angio 3 04/14 19:34 Order name: CT Abd/Pelvis - IV Contrast Only: Use run off contrast from PE study please 3 04/14 19:39 Order name: Chest For Pe Angio; Complete Time: 21:36 EDMS 04/14 19:41 Order name: Abdomen ; Complete Time: 22:08 EDMS 04/14 23:40 Order name: Procalcitonin; Complete Time: 23:41 EDMS 04/15 00:44 Order name: Lactate Sepsis 2 HR Follow-up; Complete Time: 01:07 EDMS 04/15 03:19 Order name: CBC with Automated Diff; Complete Time: 03:43 EDMS 04/15 03:54 Order name: Basic Metabolic Panel; Complete Time: 05:04 EDMS 04/15 03:54 Order name: Lipid Profile; Complete Time: 05:04 EDMS 04/15 03:54 Order name: Magnesium; Complete Time: 05:04 EDMS 04/15 03:54 Order name: Thyroid Stimulating Hormone; Complete Time: 05:04 EDMS 04/15 04:07 Order name: T4 Free; Complete Time: 05:04 EDMS 04/15 08:19 Order name: [facility] 04/14 19:25 Order name: Accucheck; Complete Time: 20:28 [facility] 04/14 19:25 Order name: Cardiac monitoring; Complete Time: 20:12 3 04/14 19:25 Order name: EKG - Nurse/Tech; Complete Time: 20:12 3 04/14 19:25 Order name: IV Saline Lock - Large Bore; Complete Time: 20:28 [facility] 04/14 19:25 Order name: Labs collected and sent; Complete Time: 20:12 3 04/14 19:25 Order name: O2 Per Protocol; Complete Time: 20:28 3 04/14 19:25 Order name: O2 Sat Monitoring; Complete Time: 20:13 3 04/14 19:25 Order name: Urine Dipstick-Ancillary (obtain specimen); Complete Time: 20:28 sp3 Administered Medications: 20:28 Drug: Acetaminophen 1000 mg Route: PO; vc1 20:28 Drug: Cefepime 2 grams Route: IVPB; Rate: 200 ml/hr; Infused Over: 30 mins; Site: right vc1 forearm; 20:28 Drug: vancoMYCIN 1 grams Route: IVPB; Infused Over: 2 hrs; Site: left wrist; vc1 20:29 Drug: NS 0.9% 1000 ml Route: IV; Rate: 1 bolus; Site: right wrist; vc1 Disposition Summary: 04/14/22 21:23 Hospitalization Ordered Hospitalization Status: Inpatient Admission sp3 Provider: Xavier Cruz sp3 Condition: Stable sp3 Problem: an acute exacerbation sp3 Symptoms: have worsened sp3 Bed/Room Type: Standard sp3 Location: Telemetry/MedSurg (Inpatient)(04/15/22 06:06) mw Room Assignment: [facility](04/15/22 06:06) mw Diagnosis - Other pneumonia, unspecified organism sp3 - Other specified sepsis sp3 Forms: - Medication Reconciliation Form sp3 - SBAR form sp3 Signatures: Dispatcher [employer] EDMS Nae Wilder RN RN Juvenal Adams DO DO ms3 Aisha Riley MD MD sp3 Danica Macedo RN RN vc1 Johanna Saxena PA PA sb3 Corrections: (The following items were deleted from the chart) 21:41 21:23 Telemetry/MedSurg (Inpatient) sp3 mw 21:41 21:23 sp3 mw 04/15 06:06 04/14 21:41 [facility] ER HOLD mw mw 04/15 06:06 04/14 21:41 ERHOLD- mw mw
--- NOTE | 2022-04-14 21:24 | ER ---
Nurse's Notes [facility] Name: Bc Carrero Age: 81 yrs Sex: Male : 1940 Arrival Date: 04/14/2022 Time: 19:11 Bed 28 Private MD: Diagnosis: Other pneumonia, unspecified organism;Other specified sepsis Presentation: 04/14 19:12 Chief complaint: EMS states: "He is a cancer patient and had a blood transfusion today. vc1 His called us about an hour ago saying he is a little altered and slow to answer questions and very weak. When we arrived he was tachycardic, respirations 28-30 and hypotensive with a temp of 103.8. He is oriented at times. He is in chronic hip pain family said it is because of the cancer.". Initial Sepsis Screen: Does the patient meet any 2 criteria? Temp <36.0*C (96.8*F)) or > 38.3*C (100.9*F). HR > 90 bpm. Yes Does the patient have a suspected source of infection? No. Patient's initial sepsis screen is negative. Risk Assessment: Do you want to hurt yourself or someone else? Patient reports no desire to harm self or others. Onset of symptoms was April 14, 2022 at 17:45. 19:12 Method Of Arrival: EMS: [facility] 19:12 Acuity: CLARISSA 3 vc1 19:27 Coronavirus screen: Vaccine status: Patient reports receiving the 2nd dose of the covid vc1 vaccine. Plus Booster; Moderna. Ebola Screen: No symptoms or risks identified at this time. 19:29 Care prior to arrival: Medication(s) given: Normal saline infusion, 500 mL, Cold. vc1 Triage Assessment: 19:17 General: Appears uncomfortable, ill, Behavior is restless. Pain: Complains of pain in vc1 left hip and right hip Pain does not radiate. EENT: No deficits noted. Neuro: Level of Consciousness is confused, lethargic, Oriented to person. Cardiovascular: Patient's skin is warm and dry. Respiratory: Airway is patent Respiratory effort is even, unlabored, Respiratory pattern is regular. GI: No deficits noted. : No deficits noted. Derm: Skin is intact, is healthy with good turgor, Skin temperature is hot. Historical: - Allergies: 19:25 No Known Allergies; vc1 - Home Meds: 19:25 Chemotherapy [Active]; vc1 - PMHx: 19:25 Lung Cancer; vc1 - Immunization history:: Adult Immunizations up to date, Client reports receiving the 2nd dose of the Covid vaccine, Plus Booster; Moderna. - Social history:: Smoking status: Patient/guardian denies using tobacco, but has a distant history of tobacco abuse. Screenin:18 Abuse screen: Denies threats or abuse. Nutritional screening: No deficits noted. vc1 Tuberculosis screening: No symptoms or risk factors identified. 19:28 Fall Risk No fall in past 12 months (0 pts). Secondary diagnosis (15 points) impaired vc1 mobility, IV access (20 points). Ambulatory Aid- None/Bed Rest/Nurse Assist (0 pts). Gait- Weak (10 pts.). Mental Status- Oriented to own ability (0 pts). Total Anderson Fall Scale indicates Low Risk Score (25-44 pts). Fall prevention measures have been instituted. Side Rails Up X 2 Family Present and informed to notify staff if they need to leave bedside. Assessment: 19:15 Reassessment: See triage assessment. vc1 20:15 Reassessment: Patient and/or family updated on plan of care and expected duration. Pain vc1 level reassessed. Patient is alert, oriented x 3, equal unlabored respirations, skin warm/dry/pink. Patient states symptoms have improved. 21:15 Reassessment: Patient and/or family updated on plan of care and expected duration. Pain vc1 level reassessed. Patient is alert, oriented x 3, equal unlabored respirations, skin warm/dry/pink. Patient states feeling better. Patient states symptoms have improved. Vital Signs: 19:12 BP 129 / 94; Pulse 116; Resp 19; Temp 102.7; Pulse Ox 93% on R/A; vc1 19:26 Weight 83.91 kg; Height 5 ft. 10 in. (177.80 cm); Pain 8/10; vc1 21:38 Temp 99.6; vc1 21:52 BP 110 / 67; Pulse 86; Pulse Ox 93% on R/A; vc1 19:26 Body Mass Index 26.54 (83.91 kg, 177.80 cm) vc1 ED Course: 19:11 Patient arrived in ED. tw5 19:16 Aisha Riley MD is Attending Physician. sp3 19:17 Triage completed. vc1 19:17 Arm band placed on right wrist. vc1 19:25 Danica Macedo, RN is Primary Nurse. vc1 19:27 Patient has correct armband on for positive identification. Bed in low position. Call vc1 light in reach. Side rails up X2. Adult w/ patient. Client placed on continuous cardiac and pulse oximetry monitoring. NIBP monitoring applied. 19:52 Chest Single View XRAY In Process Unspecified. EDMS 20:12 Inserted saline lock: 20 gauge in right forearm, using aseptic technique. Blood oe collected. 20:13 Urine Culture Sent. oe 20:13 Urine Microscopic Only Sent. oe 20:13 Blood Culture Adult (2) Sent. oe 20:13 CBC with Diff Sent. oe 20:13 CMP Sent. oe 20:13 Lactate Sent. oe 20:13 Protime (+inr) Sent. oe 21:15 Chest For Pe Angio In Process Unspecified. EDMS 21:15 Abdomen In Process Unspecified. EDMS 21:22 Xavier Cruz is Hospitalizing Provider. sp3 21:55 No provider procedures requiring assistance completed. Patient admitted, IV remains in vc1 place. 04/15 07:42 Primary Nurse role handed off by Danica Macedo, ALAYNA bp 07:42 Shashi Auguste, ALAYNA is Primary Nurse. bp Administered Medications: 04/14 20:28 Drug: Acetaminophen 1000 mg Route: PO; vc1 20:28 Drug: Cefepime 2 grams Route: IVPB; Rate: 200 ml/hr; Infused Over: 30 mins; Site: right vc1 forearm; 20:28 Drug: vancoMYCIN 1 grams Route: IVPB; Infused Over: 2 hrs; Site: left wrist; vc1 20:29 Drug: NS 0.9% 1000 ml Route: IV; Rate: 1 bolus; Site: right wrist; vc1 Medication: 19:27 VIS not applicable for this client. vc1 Outcome: 21:23 Decision to Hospitalize by Provider. sp3 21:55 Admitted to ER Hold. Please see [facility] for further documentation. vc1 21:55 Condition: improved 21:55 Instructed on the need for admit. 04/15 09:02 Patient left the ED. bp Signatures: Dispatcher [employer] EDMS Gokul Hatch Brian, RN RN bp Aisha Riley MD MD sp3 [address] tw5 Danica Macedo RN RN vc1
--- NOTE | 2022-04-14 21:31 | RAD REPORT ---
EXAM DESCRIPTION: CT - Chest For Pe Angio - 04/14/2022 9:13 pm CLINICAL HISTORY: Chest pain. fever, hypoxia COMPARISON: Thorax W/ Con dated 04/21/2021; Chest Abdomen Pelvis W Cont dated 02/03/2022; Abdomen Pel vis W Contrast dated 11/24/2021 TECHNIQUE: CT angiogram of the pulmonary arteries was performed with MIP. All CT scans are performed using dose optimization technique as appropriate and may include automated exposure control or mA/KV adjustment according to patient size. FINDINGS: No evidence of pulmonary thromboembolism. No acute aortic finding demonstrated. Moderate ground-glass opacity is seen in the left upper lobe suspicious for infection/ pneumonia. No significant pericardial or pleural fluid. Destructive mass along the right superior chest wall again seen measuring slightly smaller compared t o the 02/03/2022 study. IMPRESSION: No evidence of pulmonary thromboembolism. Left upper lobe pulmonary opacities likely represent infection/pneumonia.
[2022-04-14 21:32] LABS: Anisocytosis 1+; Blood Morphology Comment NOTED (NOT SEEN); Platelet Estimate DECR; White Blood Cell Scan OK (OK)
--- NOTE | 2022-04-14 21:39 | RAD REPORT ---
EXAM DESCRIPTION: CTAbdomen Pelvis W Contrast - 04/14/2022 9:13 pm CLINICAL HISTORY: Abdominal pain. abdominal pain COMPARISON: Abdomen Pelvis W Contrast dated 11/24/2021; Chest Abdomen Pelvis W Cont dated 02/03/2022; Extremity Venous Uni Ltd dated 10/26/2021 TECHNIQUE: Biphasic CT imaging of the abdomen and pelvis was performed with 100 ml non-ionic IV cont rast. All CT scans are performed using dose optimization technique as appropriate and may include automated exposure control or mA/KV adjustment according to patient size. FINDINGS: Mild atelectasis is present in the right lower lobe. Small low-density hepatic lesions are present likely representing cysts. The spleen, pancreas, adrena l glands are within normal limits. Benign left renal cyst. Right kidney appears unremarkable. No bowel obstruction, free air, free fluid or abscess. Nonvisualized appendix. Para-aortic lymphade nopathy is noted bilateral pelvic sidewall and iliac chain lymphadenopathy appearing mildly progressi ve since comparative study. For example, bulky right para-aortic adenopathy currently measures 6.2 x 3.8 cm, previously 5.3 x 1.9 cm. Bilateral iliac veins and infrarenal IVC show enlargement without visible contrast opacification seen . Left iliac wing lesion is unchanged. IMPRESSION: Para-aortic lymphadenopathy is seen to be mildly progressive since comparative study. Enlargement of the iliac veins bilaterally as well as the infrarenal IVC with no contrast seen presen t within these venous structures. This raises suspicion for DVT. Recommend ultrasound follow-up.
[2022-04-14 22:11] LABS: SARS-CoV-2 Antigen Rapid Res Negative (Negative)
--- NOTE | 2022-04-14 22:46 | P.HP ---
Certification for Inpatient Patient admitted to: Inpatient With expected LOS: >2 Midnights Patient will require the following post-hospital care: None Practitioner: I am a practitioner with admitting privileges, knowledge of patient current condition, hospital course, and medical plan of care. Services: Services provided to patient in accordance with Admission requirements found in Title 42 Section 412.3 of the Code of Federal Regulations Patient History Date of Service: 04/15/22 Primary Care Provider: Timmy Reason for admission: Pneumonia, Sepsis History of Present Illness: Patient is an 81-year-old male with stage IV lung cancer on chemotherapy (last treatment 1 week ago) who presented to the ED with altered mental status. Patient's reports that patient had 2 unit PRBC transfusion this morning. While they were driving home, she noticed he was very weak and responding slowly and called EMS. Upon EMS arrival, he was tachycardic, tachypneic, hypotensive, and febrile. His symptoms were attributed to being a transfusion reaction. In the ED, his labs are significant for hemoglobin of 8.8, hematocrit 25.8, plate lets 111, elevated LFTs, lactic acid 2.2, procal 0.35. ABG indicative of respiratory alkalosis. CT chest showed "No evidence of pulmonary thromboembolism. Left upper lobe pulmonary opacities likely represent infection/pneumonia." He was started on Vanco and cefepime and received 1L fluid and 1 gram tylenol. Upon my assessment, patient states he is feeling much better. His vital signs have stabilized. He is requiring supplemental O2 but saturating appropriately. He is admitted for further evaluation and treatment. Allergies No Known Allergies Allergy (Unverified 04/14/22 10:51) Home medications list reviewed: Yes Home Medications: Apixaban [Eliquis *] 5 mg PO BID 10/02/20 Albuterol Sulfate [Proair Hfa] 2 puff IH TID PRN #1 [id number] 10/05/20 Apixaban [Eliquis *] 1 mg PO BID 04/14/22 Hydrocodone/Acetaminophen [Hydrocodone-Acetamin 7.5-325] 1 mg PO QID 04/14/22 predniSONE [Prednisone] 1 mg PO DAILY 04/14/22 - Past Medical/Surgical History Diabetic: No -: Stage IV Lung Cancer with Metasteses -: DVT Past Surgical History: Reviewed- Non-Contributory Psychosocial/ Personal History: Patient is . - Family History mother -: Heart disease father -: Heart disease - Social History Smoking Status: Former smoker Alcohol use: No CD- Drugs: No Caffeine use: Yes Place of Residence: Home Review of Systems General: Fever, Sweats, Weakness Respiratory: Shortness of Breath Neurological: Confusion Physical Examination - Physical Exam General: Alert, In no apparent distress, Oriented x3 HEENT: Atraumatic, PERRLA, EOMI, Sclerae nonicteric Neck: Supple, 2+ carotid pulse no bruit, No LAD, Without JVD or thyroid abnormality Respiratory: Dull Cardiovascular: Regular rate/rhythm, Normal S1 S2 Gastrointestinal: Normal bowel sounds, No tenderness Musculoskeletal: No tenderness Integumentary: No rashes Neurological: Normal speech, Normal strength at 5/5 x4 extr, Normal tone, Normal affect - Studies Laboratory Data (last 24 hrs) 04/14/22 19:55: PT 18.8 H, INR 1.69, APTT 33.3 04/14/22 19:55: Sodium 133 L, Potassium 4.2, BUN 16, Creatinine 1.08, Glucose 126 H, Total Bilirubin 0.6, AST 78 H, ALT 102 H, Alkaline Phosphatase 144 H 04/14/22 19:55: WBC 5.7, Hgb 8.8 L, Hct 25.8 L, Plt Count 111 L Assessment and Plan - Problems (Diagnosis) (1) Pneumonia Current Visit: Yes Status: Acute Qualifiers: Pneumonia type: due to unspecified organism Laterality: left Lung location: upper lobe of lung Qualified Code(s): J18.9 - Pneumonia, unspecified organism (2) Anemia Current Visit: Yes Status: Acute Qualifiers: Anemia type: unspecified type Qualified Code(s): D64.9 - Anemia, unspecified (3) Transfusion reaction Current Visit: Yes Status: Acute Qualifiers: Encounter type: initial encounter Qualified Code(s): T80.92XA - Unspecified transfusion reaction, initial encounter (4) Severe sepsis Current Visit: Yes Status: Acute (5) Lung cancer Current Visit: Yes Status: Chronic Qualifiers: Laterality: right Lung location: overlapping sites Qualified Code(s): C34.81 - Malignant neoplasm of overlapping sites of right bronchus and lung (6) DVT (deep venous thrombosis) Current Visit: Yes Status: Acute Qualifiers: DVT location: lower extremity Affected thrombotic vein of extremity: unspecified vein of extremity Chronicity: unspecified Laterality: left Qualified Code(s): I82.402 - Acute embolism and thrombosis of unspecified deep veins of left lower extremity - Plan -Admit to medical floor and monitor on telemetry -Patient initially meeting severe sepsis criteria but vital signs have since stabilized. Lactic acid down to 1.1. WBC WNL. Blood cultures obtained. -Continue vanc and cefepime. -Pulmonology consulted -Breathing treatments as needed -Incentive spirometry -Supplemental O2 as needed. Wean as tolerated. -CT abd/pelv suspicious for DVT. Venous US confirmed. Oral confirmation from tech but awaiting official read from radiologist. 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 Therapeutic lovenox started. CT chest negative for PE. -Physical therapy consult -Monitor and replete electrolytes per protocol -Reconcile and continue home medications -Lovenox for VTE ppx -Full code Discharge Plan: Home Plan to discharge in: Greater than 2 days - Advance Directives Does patient have a Living Will: No Does patient have a Durable POA for Healthcare: No - Code Status/Comfort Care Code Status Assessed: Yes (Full) Critical Care: No Time Spent Managing Pts Care (In Minutes): 50
[2022-04-14] MEDS ORDERED: ACETAMINOPHEN 500 MG TAB PO PRN (22:48)
[2022-04-14] MEDS ORDERED: VANCOMYCIN 1 GM in NA CHLORIDE 0.9% 250 ML IVPB SCH (22:48)
[2022-04-14] MEDS ORDERED: ALBUTEROL 2.5 MG/3 ML NEB SOL NEB PRN (22:48)
[2022-04-14] MEDS ORDERED: ONDANSETRON 4 MG/2 ML VIAL IV PRN (22:48)
[2022-04-14] MEDS ORDERED: APIXABAN 5 MG TABLET PO SCH (22:48)
[2022-04-14 22:52] VITALS: BMI 26.5
[2022-04-14] MEDS: NA CHLORIDE 0.9% 1,000 ML IV SCH (23:00)
[2022-04-14] MEDS ORDERED: APIXABAN 5 MG TABLET ONE (23:18)
[2022-04-14] MEDS ORDERED: VANCOMYCIN 1 GM in NA CHLORIDE 0.9% 250 ML IVPB ONE (23:45)
[2022-04-15] MEDS ORDERED: NA CHLORIDE 0.9% 250 ML ONE (01:00)
[2022-04-15] MEDS ORDERED: METHYLPREDNISOLONE 125 MG INJ ONE ×2 (01:00→06:09)
[2022-04-15] MEDS ORDERED: VANCOMYCIN 1 GM/VIAL ONE (01:00)
[2022-04-15 03:15] LABS: Absolute Lymphocytes (CBC) 0.3 K/uL (0.7-4.9); Lymphocytes % 4.7 % (15.3-44.8); MCV 91.4 fL (80-100); MPV 7.7 fL (7.6-11.3); RBC Red Blood Cell Count 2.51 M/uL (4.33-5.43)
[2022-04-15 03:44] LABS: Magnesium 1.8 mg/dL (1.8-2.4); Potassium 3.9 mmol/L (3.5-5.1)
[2022-04-15 03:53] LABS: Thyroid Stimulating Hormone 14.2 uIU/mL (0.360-3.740)
[2022-04-15] MEDS: METHYLPREDNISOLONE 125 MG INJ IV SCH ×4 (06:00→17:54)
--- NOTE | 2022-04-15 08:16 | P.CNS ---
Date of Consult: 04/15/22 Primary Care Provider: Timmy Chief Complaint: Pneumonia, Sepsis History of Present Illness: Patient is 81 years of age with stage IV lung cancer last chemotherapy about a week ago was admitted with altered mental status anemia weakness tachycardia tachypnea hypotension had some blood transfusion has some opacities on his CT scan he is doing much better at the time of my evaluation Allergies No Known Allergies Allergy (Unverified 04/14/22 10:51) Home Medications: Apixaban [Eliquis *] 5 mg PO BID 10/02/20 Apixaban [Eliquis *] 2.5 mg PO BID 04/14/22 Hydrocodone/Acetaminophen [Hydrocodone-Acetamin 7.5-325] 7.5 - 325 mg PO QID 04/14/22 predniSONE [Prednisone] 20 mg PO DAILY 04/14/22 Albuterol Sulfate [Proair Hfa] 2 puff IH BID 04/15/22 Docusate/Senna [Senokot-S*] 1 tab PO BID 04/15/22 fentaNYL [Fentanyl] 50 mcg TD EVERY 3RD DAY 04/15/22 - Past Medical/Surgical History Diabetic: No -: Stage IV Lung Cancer with Metasteses -: DVT Psychosocial/ Personal History: Patient is . - Family History mother Medical History: Heart disease father Medical History: Heart disease - Social History Alcohol use: No CD- Drugs: No Caffeine use: Yes Place of Residence: Home Review of Systems 10-point ROS is otherwise unremarkable General: Weakness Respiratory: Shortness of Breath Physical Examination Temp Pulse Resp BP Pulse Ox 97.3 F 69 18 107/70 96 04/15/22 04:00 04/15/22 04:00 04/15/22 04:00 04/15/22 04:00 04/15/22 04:00 General: Alert, In no apparent distress, Oriented x3 Respiratory: Crackles/rales Cardiovascular: No edema, Regular rate/rhythm, Normal S1 S2 Gastrointestinal: Normal bowel sounds, Soft and benign Laboratory Data (last 24 hrs) 04/14/22 19:55: PT 18.8 H, INR 1.69, APTT 33.3 04/14/22 19:55: Sodium 133 L, Potassium 4.2, BUN 16, Creatinine 1.08, Glucose 126 H, Total Bilirubin 0.6, AST 78 H, ALT 102 H, Alkaline Phosphatase 144 H 04/14/22 19:55: WBC 5.7, Hgb 8.8 L, Hct 25.8 L, Plt Count 111 L - Problems (1) Pneumonia Current Visit: Yes Status: Acute Plan: Patient is 81 years of age admitted with sepsis-like syndrome CT scan shows groundglass changes on the left side large lung mass on the right side he appears to have a respiratory alkalosis White count is normal mildly anemic patient is adequately anticoagulated chemistries reviewed mildly elevated procalcitonin vital signs are currently stable patient was treated with Alimta which is an antimetabolite possible that he has a pneumonitis from it continue with steroids present antibiotics for now Qualifiers: Pneumonia type: due to unspecified organism
--- NOTE | 2022-04-15 08:19 | RAD REPORT ---
EXAM DESCRIPTION: US - Extrem Venous W Compress [place] - 04/14/2022 11:44 pm CLINICAL HISTORY: iliac veins enlarged bilaterally Bilateral leg edema and swelling. COMPARISON: Extremity Venous Uni Ltd dated 10/26/2021; Chest For Pe Angio dated 04/14/2022; Abdomen Pelvis W Contrast dated 04/14/2022 TECHNIQUE: Real-time sonographic interrogation of the left and right lower extremity deep venous sys tems was performed. FINDINGS: Extensive left-sided DVT is present from the left common femoral vein to the posterior tib ial vein. Right-sided DVT is not identified. IMPRESSION: Extensive left lower extremity DVT is seen.
[2022-04-15] MEDS ORDERED: MAGNESIUM SULFATE 1 gm IVPB 1 GM/100 ML BAG IV ONE ×2 (08:30→08:50)
[2022-04-15] MEDS ORDERED: POTASSIUM CL SA 10 MEQ TAB PO ONE ×2 (08:30→08:50)
[2022-04-15] MEDS: HYDROCODONE/APAP 7.5/325 MG TAB PO PRN ×3 (08:45→23:03)
[2022-04-15] MEDS ORDERED: HYDROCODONE/APAP 7.5/325 MG TAB ONE (08:49)
[2022-04-15] MEDS: ENOXAPARIN 80 MG/0.8 ML SQ SCH ×2 (10:59→20:29)
[2022-04-15] MEDS: NA CHLORIDE 0.9% 1,000 ML IV SCH (10:59)
[2022-04-15] MEDS: CEFEPIME 1 GM in NA CHLORIDE 0.9% 100 ML IV SCH ×2 (11:00→20:29)
--- NOTE | 2022-04-15 12:28 | P.PN ---
Subjective Date of Service: 04/15/22 Primary Care Provider: Timmy Chief Complaint: Pneumonia, Sepsis Patient is doing much better today. No fever. Oxygen weaned down to 2 L by nasal cannula. Physical Examination - Vital Signs Temperature: 99.6 F Blood Pressure: 110/67 Pulse: 86 Respirations: 19 Pulse Ox (%): 97 - Studies Laboratory Data (last 24 hrs) 04/14/22 19:55: PT 18.8 H, INR 1.69, APTT 33.3 04/14/22 19:55: Sodium 133 L, Potassium 4.2, BUN 16, Creatinine 1.08, Glucose 126 H, Total Bilirubin 0.6, AST 78 H, ALT 102 H, Alkaline Phosphatase 144 H 04/14/22 19:55: WBC 5.7, Hgb 8.8 L, Hct 25.8 L, Plt Count 111 L Assessment And Plan - Current Problems (Diagnosis) (1) Acute respiratory failure with hypoxia Current Visit: Yes Status: Acute (2) Bacterial pneumonia Current Visit: Yes Status: Acute (3) DVT (deep venous thrombosis) Current Visit: Yes Status: Acute Qualifiers: DVT location: lower extremity Affected thrombotic vein of extremity: unspecified vein of extremity Chronicity: unspecified Laterality: left Qualified Code(s): I82.402 - Acute embolism and thrombosis of unspecified deep veins of left lower extremity (4) Lung cancer Current Visit: Yes Status: Chronic Qualifiers: Laterality: right Lung location: overlapping sites Qualified Code(s): C34.81 - Malignant neoplasm of overlapping sites of right bronchus and lung (5) Anemia Current Visit: Yes Status: Acute Qualifiers: Anemia type: unspecified type Qualified Code(s): D64.9 - Anemia, unspecified - Plan Physical Exam General: Alert, In no apparent distress, Oriented x3 HEENT: Atraumatic, PERRLA, EOMI, Sclerae nonicteric Neck: Supple, Without JVD. Respiratory: Bilateral crackles, adequate breath sounds bilaterally. Cardiovascular: Regular rate/rhythm, Normal S1 S2 Gastrointestinal: Normal bowel sounds, No tenderness Musculoskeletal: No tenderness Integumentary: No rashes Neurological: Normal speech, Normal strength at 5/5 x4 extr, Normal tone, Normal affect. Plan: Continue current antibiotics. Wean oxygen as tolerated Pulmonary input appreciated. Incentive spirometry. Venous Doppler results reviewed and required extensive left lower extremity DVT. CTPA shows no evidence of pulmonary embolism. Full dose Lovenox for DVT prophylaxis. Patient may need prolonged therapy with full dose Lovenox for cancer related DVT. Monitor H&H closely on full anticoagulation. Transfuse as needed for hemoglobin less than 7.
[2022-04-15] MEDS ORDERED: HOME MED 1 EA UNK (Fentanyl [Fentanyl] Patch.Td72) TD SCH (12:39)
[2022-04-15] MEDS ORDERED: FENTANYL 50 MCG/PATCH TD SCH (13:00)
[2022-04-15] MEDS ORDERED: VANCOMYCIN 1.5 GM in NA CHLORIDE 0.9% 500 ML IVPB SCH ×2 (18:00→23:00)
[2022-04-15] MEDS: DOCUSATE NA/SENNA CONC 1 TAB PO SCH (20:29)
[2022-04-16] MEDS: METHYLPREDNISOLONE 125 MG INJ IV SCH ×2 (01:07→06:34)
[2022-04-16] MEDS: HYDROCODONE/APAP 7.5/325 MG TAB PO PRN ×5 (03:05→21:34)
[2022-04-16] MEDS: NA CHLORIDE 0.9% 1,000 ML IV SCH (03:08)
[2022-04-16 03:50] LABS: Absolute Lymphocytes (CBC) 0.2 K/uL (0.7-4.9); Hematocrit 23.4 % (39.6-49.0); Lymphocytes % 2.7 % (15.3-44.8); MCV 92.7 fL (80-100); RBC Red Blood Cell Count 2.52 M/uL (4.33-5.43)
[2022-04-16 04:07] LABS: Potassium 3.7 mmol/L (3.5-5.1)
--- NOTE | 2022-04-16 08:13 | P.PN ---
Subjective Date of Service: 04/16/22 Primary Care Provider: Timmy Chief Complaint: Pneumonia, Subjective: Improving (Patient is doing better no new complaints oxygenation vital signs all satisfactory) Patient is doing much better no new complaints vital signs oxygenation all stable Review of Systems Unremarkable General: Weakness Respiratory: Shortness of Breath Physical Examination - Vital Signs Temperature: 96.8 F Blood Pressure: 109/67 Pulse: 58 Respirations: 20 Pulse Ox (%): 96 - Physical Exam General: Alert, In no apparent distress, Oriented x3 Respiratory: Clear to auscultation bilaterally Cardiovascular: No edema, Regular rate/rhythm Assessment And Plan - Current Problems (Diagnosis) (1) Pneumonitis Current Visit: Yes Status: Acute Plan: Patient is 81 years of age s/p chemotherapy for lung cancer admitted with respiratory distress, respiratory alkalosis he has an interstitial pneumonitis in the left side and a large lung mass on the right side evidence of active ongoing sepsis change him over to p.o. levofloxacin p.o. prednisone resume p.o. Eliquis check for room air pulse ox ambulate prednisone is listed on his home medications
[2022-04-16] MEDS ORDERED: APIXABAN 2.5 MG TABLET PO SCH (09:00)
[2022-04-16] MEDS ORDERED: POTASSIUM CL SA 10 MEQ TAB PO ONE (09:00)
[2022-04-16] MEDS ORDERED: predniSONE 20 MG TAB PO SCH (09:00)
[2022-04-16] MEDS: predniSONE 20 MG TAB PO SCH ×2 (10:29→21:34)
[2022-04-16] MEDS: DOCUSATE NA/SENNA CONC 1 TAB PO SCH ×2 (10:29→21:33)
[2022-04-16] MEDS: levoFLOXacin 750 MG TAB PO SCH (10:29)
[2022-04-16] MEDS ORDERED: ALBUTEROL 2.5 MG/3 ML NEB SOL NEB PRN (13:00)
--- NOTE | 2022-04-16 13:03 | P.PN ---
Subjective Date of Service: 04/16/22 Primary Care Provider: Timmy Chief Complaint: Pneumonia, Patient has no new complaint No fever. Oxygen weaned down to 2 L by nasal cannula and patient saturating at 98%. Physical Examination - Vital Signs Temperature: 96.8 F Blood Pressure: 109/67 Pulse: 58 Respirations: 20 Pulse Ox (%): 96 Assessment And Plan - Current Problems (Diagnosis) (1) Acute respiratory failure with hypoxia Current Visit: Yes Status: Acute (2) Bacterial pneumonia Current Visit: Yes Status: Acute (3) DVT (deep venous thrombosis) Current Visit: Yes Status: Acute Qualifiers: DVT location: lower extremity Affected thrombotic vein of extremity: unspecified vein of extremity Chronicity: unspecified Laterality: left Qualified Code(s): I82.402 - Acute embolism and thrombosis of unspecified deep veins of left lower extremity (4) Lung cancer Current Visit: Yes Status: Chronic Qualifiers: Laterality: right Lung location: overlapping sites Qualified Code(s): C34.81 - Malignant neoplasm of overlapping sites of right bronchus and lung (5) Anemia Current Visit: Yes Status: Acute Qualifiers: Anemia type: unspecified type Qualified Code(s): D64.9 - Anemia, unspecified - Plan Physical Exam General: Alert, In no apparent distress, Oriented x3 HEENT: Atraumatic, PERRLA, EOMI, Sclerae nonicteric Neck: Supple, Without JVD. Respiratory: Bilateral crackles, adequate breath sounds bilaterally. Cardiovascular: Regular rate/rhythm, Normal S1 S2 Gastrointestinal: Normal bowel sounds, No tenderness Musculoskeletal: No tenderness Integumentary: No rashes Neurological: Normal speech, Normal strength at 5/5 x4 extr, Normal tone, Normal affect. Plan: Pulmonary input appreciated. Patient is clinically improved Antibiotics transition to oral Levaquin. Patient is also on oral prednisone. Wean oxygen as tolerated Incentive spirometry. Home oxygen evaluation Venous Doppler results reviewed and reports extensive left lower extremity DVT. CTPA shows no evidence of pulmonary embolism. Patient started on Eliquis by Pulmonary. His previous Eliquis dose might have been underdosed or possible failed Eliquis therapy for cancer related DVT. Will increase Eliquis to 5 mg twice daily for now. Discussing with pulmonary about switching to full dose Lovenox for outpatient treatment of cancer related thromboembolism. Monitor H&H closely on full anticoagulation. Transfuse as needed for hemoglobin less than 7.
[2022-04-16] MEDS ORDERED: APIXABAN 2.5 MG TABLET PO ONE (14:00)
[2022-04-16] MEDS: APIXABAN 5 MG TABLET PO SCH (21:33)
[2022-04-17] MEDS: HYDROCODONE/APAP 7.5/325 MG TAB PO PRN ×3 (01:50→11:57)
[2022-04-17 03:57] LABS: Absolute Lymphocytes (CBC) 0.3 K/uL (0.7-4.9); Hematocrit 25.2 % (39.6-49.0); Lymphocytes % 2.9 % (15.3-44.8); MCV 94.2 fL (80-100); RBC Red Blood Cell Count 2.67 M/uL (4.33-5.43)
[2022-04-17 04:15] LABS: Magnesium 2.2 mg/dL (1.8-2.4); Potassium 3.9 mmol/L (3.5-5.1)
[2022-04-17 08:53] VITALS: O2SAT 95
[2022-04-17] MEDS ORDERED: POTASSIUM CL SA 10 MEQ TAB PO ONE (09:00)
[2022-04-17] MEDS: predniSONE 20 MG TAB PO SCH (10:26)
[2022-04-17] MEDS: DOCUSATE NA/SENNA CONC 1 TAB PO SCH (10:26)
[2022-04-17] MEDS: APIXABAN 5 MG TABLET PO SCH (10:26)
[2022-04-17] MEDS: levoFLOXacin 750 MG TAB PO SCH (10:26)
--- NOTE | 2022-04-17 12:03 | P.DS ---
Admission Date: 04/14/22 Discharge Date: 04/17/22 Primary Care Provider: Timmy Disposition: ROUTINE DISCHARGE Discharge Condition: FAIR Reason for Admission: Pneumonia, - Problems (1) Acute respiratory failure with hypoxia Current Visit: Yes Status: Acute (2) Bacterial pneumonia Current Visit: Yes Status: Acute (3) DVT (deep venous thrombosis) Current Visit: Yes Status: Acute Qualifiers: DVT location: lower extremity Affected thrombotic vein of extremity: unspecified vein of extremity Chronicity: unspecified Laterality: left Qualified Code(s): I82.402 - Acute embolism and thrombosis of unspecified deep veins of left lower extremity (4) Lung cancer Current Visit: Yes Status: Chronic Qualifiers: Laterality: right Lung location: overlapping sites Qualified Code(s): C34.81 - Malignant neoplasm of overlapping sites of right bronchus and lung (5) Anemia Current Visit: Yes Status: Acute Qualifiers: Anemia type: unspecified type Qualified Code(s): D64.9 - Anemia, unspecified Brief History of Present Illness: Patient is an 81-year-old male with stage IV lung cancer on chemotherapy (last treatment 1 week ago) who presented to the ED with altered mental status. Patient's reports that patient had 2 unit PRBC transfusion. While they were driving home, she noticed he was very weak and responding slowly and called EMS. Upon EMS arrival, he was tachycardic, tachypneic, hypotensive, and febrile. His symptoms were attributed to being a transfusion reaction. In the ED, his labs were significant for hemoglobin of 8.8, hematocrit 25.8, platelets 111, elevated LFTs, lactic acid 2.2, procal 0.35. ABG indicative of respiratory alkalosis. CT chest showed "No evidence of pulmonary thromboembolism. Left upper lobe pulmonary opacities likely represent infection/pneumonia." He was started on Vanco and cefepime and received 1L fluid and 1 gram tylenol. He was requiring supplemental O2 but saturating appropriately. He was admitted for further evaluation and treatment. Hospital Course: Patient admitted to the medical floor treated with IV antibiotics. Seen by pulmonary-Dr. Hu who assisted with treatment. Venous Doppler of the lower extremities reported extensive DVT involving the left lower extremity. Patient had been on low-dose Eliquis 2.5 mg twice daily. I suspect Eliquis failure from underdosing. Case discussed with pulmonary and recommendations were to increase his Eliquis dose to full dose-10 mg twice a day for 1 week followed by 5 mg twice a day and follow clinical course. Another option would be full dose Lovenox as outpatient Patient is clinically improved with treatment IV antibiotics transitioned to oral Levaquin. He was also treated with steroid. Patient was weaned off oxygen to room air which he tolerated. He was not hypoxic on room air with ambulation. Of note CTPA shows no evidence of pulmonary embolism. Patient has anemia but his hemoglobin was stable on anticoagulation. Patient clinically improved and deemed stable for discharge. He is informed to follow with Dr. Hu regarding his DVT treatment. Vital Signs/Physical Exam: Temp Pulse Resp BP Pulse Ox 96.8 F 61 18 150/88 H 95 04/17/22 08:00 04/17/22 08:00 04/17/22 08:00 04/17/22 08:00 04/17/22 08:00 General: Alert, In no apparent distress, Oriented x3 HEENT: Mucous membr. moist/pink Neck: JVD not distended Respiratory: Normal air movement, Crackles/rales (Mild bibasilar crackles) Cardiovascular: Regular rate/rhythm, Normal S1 S2, Edema (Left leg) Gastrointestinal: Soft and benign, Non-distended Musculoskeletal: No tenderness Integumentary: No rashes Neurological: Normal strength at 5/5 x4 extr Laboratory Data at Discharge: WBC 9.5 K/uL (4.3-10.9) D 04/17/22 03:40 Hgb 8.3 g/dL (13.6-17.9) L 04/17/22 03:40 Hct 25.2 % (39.6-49.0) L 04/17/22 03:40 Plt Count 116 K/uL (152-406) L 04/17/22 03:40 PT 18.8 SECONDS (9.5-12.5) H 04/14/22 19:55 INR 1.69 04/14/22 19:55 APTT 33.3 SECONDS (24.3-36.9) 04/14/22 19:55 Sodium 137 mmol/L (136-145) 04/17/22 03:40 Potassium 3.9 mmol/L (3.5-5.1) 04/17/22 03:40 BUN 19 mg/dL (7-18) H 04/17/22 03:40 Creatinine 0.81 mg/dL (0.55-1.3) 04/17/22 03:40 Glucose 136 mg/dL (74-106) H 04/17/22 03:40 Magnesium 2.2 mg/dL (1.8-2.4) 04/17/22 03:40 Total Bilirubin 0.6 mg/dL (0.2-1.0) 04/14/22 19:55 AST 78 U/L (15-37) H 04/14/22 19:55 ALT 102 U/L (12-78) H 04/14/22 19:55 Alkaline Phosphatase 144 U/L (45-117) H 04/14/22 19:55 Triglycerides 106 mg/dL (<150) 04/15/22 02:38 Cholesterol 124 mg/dL (<200) 04/15/22 02:38 HDL Cholesterol 32 mg/dL (40-60) L 04/15/22 02:38 Cholesterol/HDL Ratio 3.88 04/15/22 02:38 Home Medications: Hydrocodone/Acetaminophen [Hydrocodone-Acetamin 7.5-325] 7.5 - 325 mg PO QID 04/14/22 Albuterol Sulfate [Proair Hfa] 2 puff IH BID 04/15/22 fentaNYL [Fentanyl] 50 mcg TD EVERY 3RD DAY 04/15/22 Apixaban [Eliquis] 5 mg PO BID #74 tab 04/17/22 Docusate/Senna [Senokot-S*] 1 tab PO BID #60 tab 04/17/22 Polyethylene Glycol 3350 [Miralax] 17 gm PO BID #60 04/17/22 levoFLOXacin [Levaquin*] 750 mg PO DAILY #7 tab 04/17/22 predniSONE [Prednisone*] 20 mg PO BID #20 tab 04/17/22 New Medications: Apixaban [Eliquis] 5 mg PO BID #74 tab levoFLOXacin [Levaquin*] 750 mg PO DAILY #7 tab Polyethylene Glycol 3350 [Miralax] 17 gm PO BID #60 predniSONE [Prednisone*] 20 mg PO BID #20 tab Docusate/Senna [Senokot-S*] 1 tab PO BID #60 tab Diet: AHA Activity: Ad izzy Followup: Pako Warner MD [Primary Care Provider] - Ap Hu MD [ACTIVE - CAN ADMIT] - 1-2 Weeks Time spent managing pt's care (in minutes): 38
[2022-04-17 12:06] VITALS: BP 147/89; TEMP 97
--- NOTE | 2022-04-19 08:29 | EKG ---
Test Date: 2022-04-14 Test Time: 19:45:07 Early Childhood Teacher Assistant: SYDNEY MEASUREMENT RESULTS: Intervals: Rate: 106 IL: 142 QRSD: 90 QT: 308 QTc: 409 [place]: P: 45 IL: 142 QRS: 48 T: 37 INTERPRETIVE STATEMENTS: Sinus tachycardia with occasional premature ventricular complexes Otherwise normal ECG Compared to ECG 10/01/2020 23:50:30 Ventricular premature complex(es) now present Incomplete right bundle-branch block no longer present Electronically Signed On 04-19-22 08:13:19 CDT by Weston Reece
== END 2022-04-17 14:21 | disposition home or self-care (01) | DRG 871 ==
LOC: ER 19:08 → ERHOLD 22:39 → 2ND 04-15 08:03
PROVIDERS: ADMIT Internal Medicine; ATTEND Internal Medicine
DX: A41.9 Sepsis, unspecified organism (principal); J96.01 Acute respiratory failure with hypoxia; J15.9 Unspecified bacterial pneumonia; E87.3 Alkalosis; C34.80 Malignant neoplasm of overlapping sites of unspecified bronchus and lung; I82.402 Acute embolism and thrombosis of unspecified deep veins of left lower extremity; R65.20 Severe sepsis without septic shock; D64.9 Anemia, unspecified; T80.92XA Unspecified transfusion reaction, initial encounter; Z87.891 Personal history of nicotine dependence; Z20.822 Contact with and (suspected) exposure to COVID-19
CPT/HCPCS: 36415; 36430; 71045; 71275; 74177; 80048; 80053; 80061; 81003; 81015; 82805; 82947; 83605; 83735; 84145; 84439; 84443; 84484; 85014; 85018; 85025; 85610; 85730; 86850; 86900; 86901; 87040; 87086; 87088; 87811; 93005; 93970; 94010; 94760; 97116; 97161; 97530; 99211; 99215; 99285; J0692; J2930; J3370; J3475; J7030; J7040; J7050; J7512; P9016; Q5106; Q9967